=== PATIENT | male | born 1935 | race Caucasian/White ===

== ENCOUNTER 2019-01-16 16:05 | Inpatient (IN) ==
[2019-01-16] MEDS ORDERED: MAGNESIUM HYDROXIDE SUSP 30 ML UDC PO PRN (16:12)
[2019-01-16] MEDS ORDERED: ONDANSETRON INJ 2 MG/ML 2 ML VIAL IV PRN (16:12)
[2019-01-16] MEDS ORDERED: POLYETHYLENE (MIRALAX) 17 GM PACK PO PRN (16:12)
[2019-01-16] MEDS ORDERED: ALUMINUM/MAGNESIUM SUSP 30 ML UDC PO PRN (16:12)
[2019-01-16] MEDS ORDERED: NITROGLYCERIN SL 0.4 MG/TAB TAB SL PRN (16:12)
[2019-01-16] MEDS ORDERED: GLUCOSE 10 TABS/TUBE PO PRN (16:12)
[2019-01-16] MEDS ORDERED: GLUCAGON FOR INJ 1 MG VIAL SQ PRN (16:12)
[2019-01-16] MEDS ORDERED: DEXTROSE 50% 50 ML SYRINGE IV PRN (16:12)
[2019-01-16] MEDS ORDERED: CARBOHYDRATES FOR HYPOGLYCEMIA PO PRN (16:12)
[2019-01-16] MEDS ORDERED: GLUCOSE 40% GEL 15 GM TUBE PO PRN (16:12)
[2019-01-16] MEDS ORDERED: INSULIN ASPART 100 UNITS/ML 3 ML PEN SC SCH (16:30)
--- NOTE | 2019-01-16 17:23 | History & Physical Report ---
Date of Service January 16, 2019 Assessment & Plan (1) Acute decompensated heart failure: Mr. Beasley is a 83-year-old male who has significant past medical history of CAD history of CABG x 3 in 2002, T2DM, HTN, HLD, hypothyroidism, BPH, glaucoma, diabetic retinopathy, statin intolerance who presents to [facility] as a direct admission from cardiology clinic due to decompensated CHF. Pt directly admitted from cardiology clinic / to acute decompensated CHF obtain lab work CBC, CMP, TSH, Troponin, Mag, Pro BNP CXR reveals mild CHF, pulmonary vasc congestion and small b/l pleural effusions EKG pending Echocardiogram ordered to determine diastolic vs systolic and eval for wall motion abnormality b/l venous dopplers once lab work return will give Lasix 40mg IV x 1 being Lasix IV 40mg BID starting tomorrow Ma ordered (2) Edema: Bilateral lower extremity edema, right greater than left Likely in setting of acute decompensated CHF Obtain bilateral venous Doppler rule out DVT Also concern for possible developing right lower extremity cellulitis, elevated WBC 15 K but he is afebrile Obtain procalcitonin Monitor this closely (3) CAD (coronary artery disease): hx of CABG x 3 in 2002 on ASA, Zetia, Metoprolol and losartan plan as above (4) T2DM (type 2 diabetes mellitus): Last A1c 9.0 in June 2018 Obtain A1c Patient prefers remaining on NovoLog 70/30 due to prior reaction to other insulins in past Consult glycemic pharmacist for management, appreciate their input (5) HTN (hypertension): Blood pressure currently elevated On metoprolol, losartan, HCTZ and outpatient Hold HCTZ and will administer IV Lasix (6) HLD (hyperlipidemia): Continue Zetia Patient statin intolerant fasting lipid panel pending (7) Hypothyroidism: Continue levothyroxine Obtain TSH (8) BPH (benign prostatic hyperplasia): Continue Flomax and finasteride (9) Subconjunctival hemorrhage of left eye: Conservative management, monitor (10) DVT prophylaxis: Lovenox, SCD/TEDS Disposition: pt admitted to PCU Follow up: PCP Dr. Boyer upon discharge along with appropriate cardiology follow up Patient was seen and examined in collaboration with Dr. Lyman, please see addendum Starting 01/17/19 pt will be under the care of Dr. Vangala History of Present Illness Chief Complaint: Shortness of breath and increased lower extremity swelling x1.5 weeks. Primary Care Provider: Jamie Boyer MD Mr. Beasley is a 83-year-old male who has significant past medical history of CAD history of CABG x 3 in 2002, T2DM, HTN, HLD, hypothyroidism, BPH, glaucoma, diabetic retinopathy, statin intolerance who presents to [facility] as a direct admission from cardiology clinic due to decompensated CHF. is at bedside. Over the past 1.5 weeks he has noticed increase in lower extremity swelling, right greater than left, shortness of breath with exertion, 2-3 pillow orthopnea, minimal dry cough. He admits to chronic left lower extremity swelling ever since CABG, but now worse. He denies any fever, chills, sweats, lightheadedness, dizziness, syncope, chest pain, palpitations, hemoptysis, nausea, vomiting, abdominal pain, diarrhea, melena, hematochezia, dysuria, increased urgency with urination, hematuria. He does have frequent nocturia secondary to BPH. His appetite has otherwise been stable. He has an approximate 10 pound weight gain since his last cardiology visit per . Despite being 83 he has only been hospitalized twice once for his CABG at [facility] and the other for coronary stent at [facility] in 1992. Patient was seen and evaluated in cardiology clinic secondary to ALICIA and increased swelling. He was evaluated by Dr. Brandon and referred for direct admission. Allergies Allergy/AdvReac Type Severity Reaction Status Date / Time atorvastatin [From Lipitor] AdvReac Intermediate muscle pain Verified 01/16/19 16:24 rosuvastatin AdvReac Intermediate muscle pain Verified 01/16/19 16:24 simvastatin AdvReac Intermediate muscle pain Verified 01/16/19 16:24 lisinopril AdvReac Unknown Verified 01/16/19 16:24 Home Medications Home Medications Medication Instructions Recorded Confirmed Type amoxicillin 2,000 mg PO DAILY PRN 01/16/19 01/16/19 History aspirin [Aspir-81] 81 mg PO DAILY 01/16/19 01/16/19 History brimonidine 1 drp OPHTHALMIC (EYE) BID 01/16/19 01/16/19 History cyanocobalamin (vitamin B-12) 1,000 mcg SUBLINGUAL DAILY 01/16/19 01/16/19 History diclofenac sodium 4 g TOPICAL QID 01/16/19 01/16/19 History dorzolamide-timolol (PF) [Cosopt 1 drp OPHTHALMIC (EYE) BID 01/16/19 01/16/19 History (PF)] ezetimibe 10 mg PO DAILY 01/16/19 01/16/19 History finasteride 5 mg PO DAILY 01/16/19 01/16/19 History hydrochlorothiazide 25 mg PO 3XWK 01/16/19 01/16/19 History insulin asp prt-insulin aspart 20 unit SUBCUT BID 01/16/19 01/16/19 History [Novolog Mix 70-30FlexPen U-100] latanoprost 1 drp OPHTHALMIC (EYE) PM 01/16/19 01/16/19 History levothyroxine 75 mcg PO DAILY 01/16/19 01/16/19 History losartan 50 mg PO DAILY 01/16/19 01/16/19 History metformin 1,000 mg PO BIDM 01/16/19 01/16/19 History metoprolol tartrate 50 mg PO BID 01/16/19 01/16/19 History tamsulosin 0.4 mg PO DAILY 01/16/19 01/16/19 History vit C-E-zinc vdn-[id number] 1 tab PO BID 01/16/19 01/16/19 History [[facility]] Past Med/Surg History Medical History CAD (coronary artery disease) T2DM (type 2 diabetes mellitus) HTN (hypertension) HLD (hyperlipidemia) Hypothyroidism BPH (benign prostatic hyperplasia) Glaucoma Diabetic proliferative retinopathy Statin intolerance Surgical History History of coronary artery bypass graft x 3 PTCA R Coronary 1992 MORALES 2002 to LAD, SVG -1st diag, obtuse and posterior descending History of cataract extraction Family History Father , 71 Stroke Diabetes Mother , 79 Dementia Brother Coronary heart disease Diabetes CHF (congestive heart failure) Social History Preferred Language: Lao Communication Ability: Effective Beliefs That Will Affect Care: Sikhism Sikhism Beliefs: Confucianism Current Living Situation: Spouse Other Information That Helps Us Care for You: No Feels Safe at Home: Yes Smoking Status: Never smoker Hx Alcohol Use: Yes Alcohol type: beer Alcohol Intake Frequency: Rarely Hx Substance Use: No Review of Systems Review of Systems: All systems reviewed & are unremarkable except as noted in HPI & below Physical Exam Physical Exam: Constitutional: WD/WN, vitals as above, NAD, sitting up at bedside, pleasant, conversing easily Head: Normocephalic, Atraumatic Eyes: PERRL, conjunctivae normal except for left medial subconjunctival injection spares limbus, anicteric sclerae ENMT: external ear and nose normal, oropharynx normal Neck: trachea midline, no thyromegaly normal visual inspection Respiratory: normal respiratory effort, lungs clear to auscultation with decreased breath sounds bilateral bases, no wheeze, rales, rhonchi. Normal insp/exp effort, no accessory muscle use Cardiovascular: RRR, no murmur, bilateral lower extremity edema right greater than left, +2, right lower extremity warm, skin taunt, Vessels: no JVD or carotid bruit Chest: normal inspection of chest Abdomen: normal bowel sounds, soft, nontender, no hepatosplenomegaly Musculoskeletal: no cyanosis or clubbing, extremities motor strength 5/5 Skin: no rashes, warm and dry normal turgor Neurologic: PERRL, EOMI, accommodation nl, no face palsy, no dysarthria CN's II-XI intact bilaterally and moves all extremities Psychiatric: A+Ox3, euthymic affect Lymphatic: no cervical or axillary lymphadenopathy : deferred Results & Data Vital Signs (Past 12 Hours) Vital Signs Temp Pulse Resp Pulse Ox 01/16/19 16:55 36.6 C 100 H 18 98 Diagnostic Findings CXR: IMPRESSION: Cardiomegaly and radiographic evidence of mild congestive failure/fluid overload with small bilateral pleural effusions Code Status & VTE Plan Code Status Full Code VTE Prophylaxis Plan VTE Prophylaxis will be ordered: Yes Supervising Physician Co-Signing Physician Notes Attending Addendum: care coordinated with MINE Escoto please refer to her notes for full details, I agree with her notes patient seen and examined, records reviewed by myself as well on exam, patient seen resting in bed, comfortable breathing is improving denies chest pain minimal leg discomfort no other symptoms VS noted and reviewed oriented x3, not in distress, speaks in sentences with no effort nor accessory muscle use normal rate, regular rhythm, no murmurs clear breath sounds bilaterally non distended, soft, nontender (+) grade 1 lower leg edema, moderate erythema- right lower leg, with mild warmth mild weakness on the right leg WBC 15.7 Hg 14.1 Crea 1.00 ASSESSMENT AND PLAN DECOMPENSATED CHF echo ordered IV Lasix started titrate diuretics, monitor renal function POSSIBLE RIGHT LOWER LEG CELLULITIS Cephalexin started RIGHT LOWER LEG WEAKNESS CT head no acute CVA PT/OT eval other diagnoses and plan of care as per MINE Escoto'sunni notes Julio Lyman MD
[2019-01-16 17:25] LABS: Hematocrit (blood only) 41.4 % (42-52); Hemoglobin 14.1 g/dL (14.0-18.0); Mean Corpuscular Hgb Conc 34.1 g/dL (32-36); Mean Platelet Volume 10.2 fL (7.4-10.4); Platelet Count 223 K/uL (130-400); RDW Coefficient of Variation 13.8 % (11.5-14.5); RDW Standard Deviation 44.8 fL (36.4-46.3); Red Blood Count 4.55 M/uL (4.7-6.1); White Blood Count 15.77 K/uL (4.8-10.8)
--- NOTE | 2019-01-16 17:34 | XRay Report ---
XR chest 1V portable CLINICAL HISTORY: sob COMPARISON STUDY: No previous studies for comparison. FINDINGS: The heart is mildly enlarged. There are postsurgical changes of a midline sternotomy. There is elevation of interstitium consistent with mild pulmonary vascular congestion/fluid overload. Ther e are small bilateral pleural effusions. There is no lobar consolidation.[ IMPRESSION: Cardiomegaly and radiographic evidence of mild congestive failure/fluid overload with sma ll bilateral pleural effusions Electronically signed by: Jorge Luis Everett M.D. 01/16/2019 5:32 PM
[2019-01-16 17:46] LABS: INR 1.1 (0.9-1.1); Partial Thromboplastin Time 26.7 Seconds (21.0-31.0); Prothrombin Time 10.9 Seconds (9.0-12.0)
[2019-01-16 17:49] LABS: Albumin Level 3.7 gm/dl (3.4-5.0); BUN Creatinine Ratio 19.4 (10-20); Calcium 9.3 mg/dl (8.5-10.1); Creatinine Clr Calc Pharmacy 56.8 ml/min; Est GFR (African American) 79.7; Est GFR (Non-African American) 68.8; Magnesium 1.9 mg/dl (1.8-2.4); Potassium 4.2 mmol/L (3.5-5.1)
[2019-01-16 18:05] LABS: Bilirubin,Total 1.1 mg/dl (0.2-1)
[2019-01-16 18:06] LABS: Globulin 3.7 gm/dl (2.5-4.0); Thyroid Stimulating Hormone 1.82 uIu/ml (0.300-4.500); Total Protein 7.4 gm/dl (6.4-8.2); Troponin I 0.055 ng/ml (0-0.045)
[2019-01-16] MEDS ORDERED: PHARMACY GLYCEMIC MGMT CONSULT PRN (18:15)
[2019-01-16] MEDS ORDERED: FUROSEMIDE 40 MG/4 ML VIAL IV STA (18:15)
[2019-01-16] MEDS ORDERED: FUROSEMIDE 40 MG in SYRINGE 0 ML IV ONE (18:45)
[2019-01-16] MEDS ORDERED: INSULIN HUMAN NPH SC SCH (19:00)
--- NOTE | 2019-01-16 19:41 | Ultrasound Report ---
US venous doppler LE CLINICAL HISTORY: 83 years-old Male presenting with Edema. TECHNIQUE: Real-time grayscale and color and spectral Doppler ultrasound imaging of the veins of the bilateral lower extremities was performed. Compression and augmentation were also utilized. COMPARISON: None. FINDINGS: RIGHT: Common femoral vein: Patent. Greater saphenous vein (superficial): Patent. Deep femoral vein: Patent. Femoral vein: Patent. Popliteal vein: Patent. Calf veins: Patent. LEFT: Common femoral vein: Patent. Greater saphenous vein (superficial): Patent. Deep femoral vein: Patent. Femoral vein: Patent. Popliteal vein: Patent. Calf veins: Patent. Other: Subcutaneous edema in the left popliteal fossa. IMPRESSION: 1. No evidence of deep venous thrombosis. 2. Subcutaneous edema in the left popliteal fossa. Electronically signed by: Jamie Dillon M.D. 01/16/2019 7:40 PM
[2019-01-16] MEDS: INSULIN ASPART 100 UNITS/ML 3 ML PEN SC SCH (20:36)
[2019-01-16] MEDS: cephALEXin 250 MG CAP PO SCH (20:58)
[2019-01-16] MEDS: METOPROLOL TARTRATE 50 MG TAB PO SCH (20:59)
[2019-01-16] MEDS: LATANOPROST 0.005% OP SOLN 2.5 ML BTL OP SCH (21:00)
[2019-01-16] MEDS ORDERED: FUROSEMIDE 40 MG in SYRINGE 0 ML IV SCH (21:00)
[2019-01-16] MEDS ORDERED: INSULIN GLARGINE SOLOSTAR 100 UNITS/ML 3 ML PEN SC SCH (21:00)
[2019-01-16] MEDS: BRIMONIDINE TARTRATE 0.2% 5ML OP SCH (21:01)
[2019-01-16] MEDS: DORZOLAMIDE/TIMOLOL 22.3/6.8MG/ML 10 ML BTL OP SCH (21:01)
--- NOTE | 2019-01-16 21:49 | CT Scan Report ---
CT head/brain wo con CLINICAL HISTORY: 83 years-old Male presenting with right leg weakness. TECHNIQUE: Multidetector CT imaging of the head was performed without the use of intravenous contrast . IV contrast: None. One or more dose lowering techniques were used consistent with the principles of ALARA (as low as reasonably achievable), including automatic exposure control, mA or kV adjustment t o individual patient size, and/or use of iterative reconstruction. COMPARISON: None. CT DOSE (mGy.cm): The estimated cumulative dose is 537.48 mGy.cm. FINDINGS: Special Certificate Dictator topogram: Unremarkable. Proportional ventricular and sulcal prominence, likely age-related parenchymal volume loss. No hemorr graciela. Brain parenchyma normal in appearance with preserved lilly-white differentiation. No acute gilberto torial infarct. No mass effect or midline shift. No extra-axial fluid collection. Paranasal sinuses a nd mastoid air cells clear. Calvarium intact. IMPRESSION: 1. No acute intracranial abnormality. Electronically signed by: Jamie Dillon M.D. 01/16/2019 9:48 PM
[2019-01-17] MEDS: LEVOTHYROXINE SODIUM 75 MCG TABLET PO SCH (05:41)
[2019-01-17 05:50] LABS: Hematocrit (blood only) 37.1 % (42-52); Hemoglobin 12.5 g/dL (14.0-18.0); Mean Corpuscular Hemoglobin 30.6 pg (25-34); Mean Corpuscular Hgb Conc 33.7 g/dL (32-36); Mean Corpuscular Volume 90.7 fL (80-100); Mean Platelet Volume 10.3 fL (7.4-10.4); Platelet Count 196 K/uL (130-400); RDW Coefficient of Variation 13.7 % (11.5-14.5); RDW Standard Deviation 45.2 fL (36.4-46.3); Red Blood Count 4.09 M/uL (4.7-6.1); White Blood Count 15.27 K/uL (4.8-10.8)
[2019-01-17 06:19] LABS: Chol HDL Ratio 4; Cholesterol 147 mg/dl (0-200); HDL Cholesterol 42 mg/dl; LDL Cholesterol Calculated 92 mg/dl; Triglycerides 63 mg/dl (0-150); VLDL Cholesterol 13 mg/dl
[2019-01-17 06:29] LABS: Albumin Globulin Ratio 0.9 (0.9-2); Bilirubin,Total 1.3 mg/dl (0.2-1); Calcium 8.7 mg/dl (8.5-10.1); Creatinine Clr Calc Pharmacy 57.9 ml/min; Est GFR (African American) 81.7; Est GFR (Non-African American) 70.5; Globulin 3.4 gm/dl (2.5-4.0); Magnesium 1.7 mg/dl (1.8-2.4); Potassium 3.5 mmol/L (3.5-5.1); Total Protein 6.4 gm/dl (6.4-8.2); Troponin I 0.038 ng/ml (0-0.045)
[2019-01-17] MEDS ORDERED: PNEUMOCOCCAL ADMINISTRATION CHARGE ONE (06:45)
[2019-01-17] MEDS ORDERED: PNEUMOCOCCAL POLYSACCHARIDES 25 MCG/0.5 ML VIAL/SYR IM ONE (06:45)
[2019-01-17 06:55] LABS: Estimated Average Glucose 194 mg/dl; Hemoglobin A1C 8.4 % (4.5-5.6)
[2019-01-17] MEDS ORDERED: INSULIN HUMAN NPH SC SCH (08:00)
[2019-01-17] MEDS: ASPIRIN 81 MG ECTAB PO SCH (08:26)
[2019-01-17] MEDS: METOPROLOL TARTRATE 50 MG TAB PO SCH (08:26)
[2019-01-17] MEDS: FUROSEMIDE 40 MG in SYRINGE 0 ML IV SCH ×2 (08:26→16:59)
[2019-01-17] MEDS: cephALEXin 250 MG CAP PO SCH ×4 (08:26→20:44)
[2019-01-17] MEDS: EZETIMIBE 10 MG TABLET PO SCH (08:26)
[2019-01-17] MEDS: BRIMONIDINE TARTRATE 0.2% 5ML OP SCH ×2 (08:27→20:43)
[2019-01-17] MEDS: ENOXAPARIN INJ 40 MG/0.4 ML SYR SQ SCH (08:27)
[2019-01-17] MEDS: FINASTERIDE 5 MG TAB PO SCH (08:29)
[2019-01-17] MEDS: SACCHAROMYCES BOULARDII 250 MG CAP PO SCH (08:29)
[2019-01-17] MEDS: CEROVITE ADV FORMULA TAB PO SCH (08:29)
[2019-01-17] MEDS: DORZOLAMIDE/TIMOLOL 22.3/6.8MG/ML 10 ML BTL OP SCH ×2 (08:29→20:42)
[2019-01-17] MEDS: CYANOCOBALAMIN 500 MCG TABLET (VITAMIN B-12) PO SCH (08:29)
[2019-01-17] MEDS: TAMSULOSIN HCL 0.4 MG CAP PO SCH (08:29)
[2019-01-17] MEDS: LOSARTAN POTASSIUM 50 MG TAB PO SCH (08:29)
[2019-01-17] MEDS: INSULIN ASPART 100 UNITS/ML 3 ML PEN SC SCH ×4 (08:30→20:47)
[2019-01-17] MEDS ORDERED: MAGNESIUM SULFATE / D5W 1 GM/100 ML BAG IV ONE (08:45)
[2019-01-17] MEDS: POTASSIUM CHLORIDE 10 MEQ TABCR PO SCH ×2 (09:34→20:45)
--- NOTE | 2019-01-17 10:42 | Pharmacy Report ---
Glycemic Control Progress Note - Date of Service January 17, 2019 - Scope Glycemic Pharmacist consulted for glycemic control to write orders per [facility] inpatient glycemic control protocol. - Objective Accuchecks BSG(last 24 hours):: 01/16/19 01/16/19 01/17/19 17:06 20:31 05:29 Glucose 165 H 127 H POC Glucose 220 H 01/17/19 07:24 Glucose POC Glucose 133 H HbA1c:: Hemoglobin A1c 8.4 % (4.5-5.6) H 01/17/19 05:29 - Recent Pertinent Medications The patient is currently receiving: * Basal insulin: NPH units every 13 x 1 * Correctional Insulin: Novolog Correction per scale ACHS Goal Range: Low 120 mg/dL - High 150 mg/dL Correction Factor: 30 mg/dL/unit * Prandial insulin: Per carb ratio of 1 unit per 10 grams CHO consumed - Outpatient Anti-Diabetic Meds Novolog Mix 20 units BID metformin 1 gm PO BID - Assessment & Plan ASSESSMENT: * Pt receiving SQ basal bolus insulin regimen for hyperglycemia secondary to baseline DM (outpatient regimen on hold),stress/infection (on Keflex). * Patient is currently receiving an average of 26 units of insulin per day * 9 units of basal insulin * 27 units of prandial/correctional insulin * BSGs ranging 165 - 220 mg/dl over the past 24hrs (ONLY 2 BSGS YESTERDAY) * Changes needed to insulin regimen: * AM Fasting BSG = 133 mg/dl. This is in goal range for patient based on inpatient targets and co-morbidities. The patient received 13 units of NPH last night. Reduce dose slightly for hospitalization so will use 10 units BIDM. * Post-prandial BSGs are in range therefore no changes needed to CF/CR- utilize weight-based stress of 2 * Total daily dose = ~40 units. * Additional notes / comments: continue to hold metformin PLAN FOR INPATIENT GLYCEMIC CONTROL: * DECREASING NPH to 10 units SQ BIDM * Continuing correction factor of 25 mg/dl/unit * Continuing carb ratio of 1 unit per 9 grams CHO consumed * Continuing goal range of Low 110 mg/dL - High 140 mg/dL * Please note that the plan above was derived based on current level of insulin resistance and hospital stress. These recommendations are appropriate for inpatient admission only. Plan of care upon discharge will need to be reassessed to avoid potential outpatient hypo/hyperglycemia. Thank you.
--- NOTE | 2019-01-17 11:59 | Cardiology Progress Note ---
Date of Service January 17, 2019 Assessment & Plan (1) Acute decompensated heart failure: Patient seen with subacute onset of worsening dyspnea lower extremity edema, abdominal bloating in the outpatient setting examination consistent with decompensated congestive heart failure Patient clinically improved this morning following IV diuretics Echocardiogram pending We will change metoprolol to metoprolol succinate Continue IV diuretics Consider addition of spironolactone to her regimen in a.m. Etiology uncertain question ischemic versus nonischemic deterioration. Review echocardiogram. Elevated white cell count low albumin levels observed. Serum protein electrophoresis urinary electrophoresis and CBC with differential ordered (2) CAD (coronary artery disease): (3) HTN (hypertension): (4) T2DM (type 2 diabetes mellitus): (5) HLD (hyperlipidemia): (6) Statin intolerance: (7) History of coronary artery bypass graft x 3: Subjective Patient seen and examined, chart, medications, telemetry reviewed. Improved this morning after diuresis less dyspneic less edema No chest pains or discomfort no tachypalpitations Complains of right leg and foot pain and weakness as well as right shoulder pain and arm weakness. Notes possible traumatic injury to the right arm in the past months time Physical Exam Constitutional: WD/WN, vitals as above Eyes: PERRL, conjunctivae normal, anicteric sclerae ENMT: external ear and nose normal, oropharynx normal Neck: trachea midline, no thyromegaly Respiratory: normal respiratory effort, lungs clear to auscultation Cardiovascular: Rate/Rhythm: regular rate and regular rhythm Heart Sounds: normal S1 and normal S2; no gallop and no murmur Palpation: normal PMI Vessels: normal carotid upstroke and radial pulses present; no JVD and no carotid bruit Extremities: no edema Gastrointestinal (Abdomen): normal bowel sounds, soft, nontender, no hepatosplenomegaly Musculoskeletal: no cyanosis or clubbing, extremities motor strength 5/5 Skin: no rashes, warm and dry Neurologic: PERRL, EOMI, accommodation nl, no face palsy, no dysarthria Psychiatric: A+Ox3, euthymic affect Results & Data Vital Signs (Past 12 Hours) Vital Signs Temp Pulse Pulse Pulse Resp BP BP 01/17/19 11:02 36.5 C 72 18 136/75 01/17/19 06:59 36.8 C 91 H 18 142/74 H 01/17/19 03:58 37.6 C H 88 20 120/70 01/17/19 00:00 37 C 79 81 25 H 96/56 L Pulse Ox 01/17/19 11:02 97 01/17/19 06:59 91 01/17/19 03:58 92 01/17/19 00:00 92 Laboratory Results Laboratory Results - last 24 hr 01/16/19 01/16/19 01/16/19 17:06 17:06 17:06 WBC 15.77 H RBC 4.55 L Hgb 14.1 Hct 41.4 L MCV 91.0 MCH 31.0 MCHC 34.1 RDW Std Deviation 44.8 RDW Coeff of Radhames 13.8 Plt Count 223 MPV 10.2 PT 10.9 INR 1.1 APTT 26.7 PTT Ratio 1.0 Sodium 138 Potassium 4.2 Chloride 105 Carbon Dioxide 27 Anion Gap 6.0 BUN 19 H Creatinine 1.00 Est Cr Clr Drug Dosing 56.8 Est GFR ( Amer) 79.7 Est GFR (Non-Af Amer) 68.8 BUN/Creatinine Ratio 19.4 Glucose 165 H POC Glucose Estimat Average Glucose Hemoglobin A1c Calcium 9.3 Magnesium 1.9 Total Bilirubin 1.1 H AST 12 L ALT 24 Alkaline Phosphatase 91 Troponin I 0.055 H* NT-Pro-B Natriuret Pep 4644 H Total Protein 7.4 Albumin 3.7 Globulin 3.7 Albumin/Globulin Ratio 1.0 Triglycerides Cholesterol LDL Cholesterol, Calc VLDL Cholesterol, Calc HDL Cholesterol Cholesterol/HDL Ratio Procalcitonin TSH 1.820 01/16/19 01/16/19 01/16/19 17:06 20:31 22:57 WBC RBC Hgb Hct MCV MCH MCHC RDW Std Deviation RDW Coeff of Radhames Plt Count MPV PT INR APTT PTT Ratio Sodium Potassium Chloride Carbon Dioxide Anion Gap BUN Creatinine Est Cr Clr Drug Dosing Est GFR ( Amer) Est GFR (Non-Af Amer) BUN/Creatinine Ratio Glucose POC Glucose 220 H Estimat Average Glucose Hemoglobin A1c Calcium Magnesium Total Bilirubin AST ALT Alkaline Phosphatase Troponin I 0.058 H* NT-Pro-B Natriuret Pep Total Protein Albumin Globulin Albumin/Globulin Ratio Triglycerides Cholesterol LDL Cholesterol, Calc VLDL Cholesterol, Calc HDL Cholesterol Cholesterol/HDL Ratio Procalcitonin < 0.05 TSH 01/17/19 01/17/19 01/17/19 05:29 05:29 05:29 WBC RBC Hgb Hct MCV MCH MCHC RDW Std Deviation RDW Coeff of Radhames Plt Count MPV PT INR APTT PTT Ratio Sodium 138 Potassium 3.5 D Chloride 105 Carbon Dioxide 26 Anion Gap 7.0 BUN 20 H Creatinine 0.98 Est Cr Clr Drug Dosing 57.9 Est GFR ( Amer) 81.7 Est GFR (Non-Af Amer) 70.5 BUN/Creatinine Ratio 20.0 Glucose 127 H POC Glucose Estimat Average Glucose 194 Hemoglobin A1c 8.4 H Calcium 8.7 Magnesium 1.7 L Total Bilirubin 1.3 H AST 8 L ALT 21 Alkaline Phosphatase 73 Troponin I 0.038 NT-Pro-B Natriuret Pep Total Protein 6.4 Albumin 3.0 L Globulin 3.4 Albumin/Globulin Ratio 0.9 Triglycerides 63 Cholesterol 147 LDL Cholesterol, Calc 92 VLDL Cholesterol, Calc 13 HDL Cholesterol 42 Cholesterol/HDL Ratio 4 Procalcitonin TSH 01/17/19 01/17/19 01/17/19 05:29 07:24 11:05 WBC 15.27 H RBC 4.09 L Hgb 12.5 L Hct 37.1 L MCV 90.7 MCH 30.6 MCHC 33.7 RDW Std Deviation 45.2 RDW Coeff of Radhames 13.7 Plt Count 196 MPV 10.3 PT INR APTT PTT Ratio Sodium Potassium Chloride Carbon Dioxide Anion Gap BUN Creatinine Est Cr Clr Drug Dosing Est GFR ( Amer) Est GFR (Non-Af Amer) BUN/Creatinine Ratio Glucose POC Glucose 133 H 286 H Estimat Average Glucose Hemoglobin A1c Calcium Magnesium Total Bilirubin AST ALT Alkaline Phosphatase Troponin I NT-Pro-B Natriuret Pep Total Protein Albumin Globulin Albumin/Globulin Ratio Triglycerides Cholesterol LDL Cholesterol, Calc VLDL Cholesterol, Calc HDL Cholesterol Cholesterol/HDL Ratio Procalcitonin TSH
--- NOTE | 2019-01-17 13:55 | XRay Report ---
XR foot RT min 3V routine CLINICAL HISTORY: Right foot pain status post trauma COMPARISON: None. DISCUSSION: No acute fractures or dislocations are visualized. There are mild osteoarthritic changes. There is a small periarticular calcification at the level of the proximal to phalangeal joint of the fifth toe. There is Achilles insertional spur and plantar calcaneal spur. There are vascular calcifi cations present. IMPRESSION: No acute fractures or dislocations identified. Electronically signed by: Jorge Luis Everett M.D. 01/17/2019 1:54 PM
[2019-01-17] MEDS: ACETAMINOPHEN 325 MG TAB PO PRN ×2 (14:17→18:46)
--- NOTE | 2019-01-17 14:31 | Hospitalist Progress Note ---
Date of Service January 17, 2019 Assessment & Plan (1) Acute decompensated heart failure: Patient is an 83 yr male with H/O CAD S/P CABG x 3 in 2002, T2DM, HTN, HLD, hypothyroidism, BPH, glaucoma, diabetic retinopathy, statin intolerance who presents from cardiology clinic due to decompensated CHF. Acute systolic and diastolic CHF exacerbation CXR reveals mild CHF, pulmonary vasc congestion and small b/l pleural effusions ECHO: Moderate LVH, EF:45-50%, grade 2 diastolic dysfunction Continue daily weight, I/Os, fluid restriction Continue IV Lasix Low sodium diet Metoprolol changed to succinate Monitor renal function/electrolytes Appreciate Cardiology Input (2) Edema: Possible right lower extremity cellulitis Venous Doppler: No evidence of deep venous thrombosis. Subcutaneous edema in the left popliteal fossa. R Foot X ray: No acute fractures or dislocations identified. Procalcitonin normal Protein Electrophoresis pending Continue Keflex H/O Multiple falls H/O peripheral Neuropathy as per records Ambulatory dysfunction CT head:No acute intracranial abnormality. PT/OT (3) CAD (coronary artery disease): H/O CABG x 3 in 2002 Continue ASA, Zetia, Metoprolol and losartan (4) T2DM (type 2 diabetes mellitus): Hb A1C:8.4 Patient prefers remaining on NovoLog 70/30 due to prior reaction to other insulins in past Consult glycemic pharmacist for management, appreciate their input (5) HTN (hypertension): Blood pressure stable Continue metoprolol, losartan Also on tamsulosin HCTZ on hold while on IV Lasix (6) HLD (hyperlipidemia): Continue Zetia H/O statin intolerant (7) Hypothyroidism: Continue levothyroxine TSH normal (8) BPH (benign prostatic hyperplasia): Continue Flomax, finasteride (9) Subconjunctival hemorrhage of left eye: Conservative management (10) DVT prophylaxis: Lovenox SQ Code Status Full Code Disposition: To be determined Subjective Patient is seen and examined at bedside Complains of right foot pain Admits to have multiple falls since last few days Less short of breath today Right leg erythema/burning sensation improved Denies any chest pain, nausea, abdominal pain, dizziness Family at bedside Review of Systems Review of Systems: All systems reviewed & are unremarkable except as noted in HPI & below Physical Exam Physical Exam: Physical Exam: Vitals signs as noted above General Appearance:Moderately built and nourished, no apparent distress Head: normocephalic, Atraumatic Eyes: normal inspection, EOMI Neck: supple, Trachea midline Respiratory/Chest: Normal breath sounds, CTA Cardiovascular: S1, S2, No murmur Abdomen/GI:Soft, Non tender, Bowel sounds present Extremities/Musculoskelatal:normal inspection, B/L LE edema, R leg erythema improved Neurologic/Psych:AAOX3, Right LE weakness 4/5 Skin: normal color, warm Results & Data Vital Signs (Past 12 Hours) Vital Signs Temp Pulse Pulse Resp BP BP Pulse Ox 01/17/19 11:02 36.5 C 72 18 136/75 97 01/17/19 06:59 36.8 C 91 H 18 142/74 H 91 01/17/19 03:58 37.6 C H 88 20 120/70 92 Laboratory Results Short CBC 01/16/19 01/17/19 Range/Units 17:06 05:29 WBC 15.77 H 15.27 H (4.8-10.8) K/uL Hgb 14.1 12.5 L (14.0-18.0) g/dL Hct 41.4 L 37.1 L (42-52) % Plt Count 223 196 (130-400) K/uL BMP 01/16/19 01/17/19 17:06 05:29 Sodium 138 138 Potassium 4.2 3.5 D Chloride 105 105 Carbon Dioxide 27 26 BUN 19 H 20 H Creatinine 1.00 0.98 Glucose 165 H 127 H Calcium 9.3 8.7 Cardiac Enzymes 01/16/19 01/16/19 01/17/19 Range/Units 17:06 22:57 05:29 Troponin I 0.055 H* 0.058 H* 0.038 (0-0.045) ng/ml Liver Function 01/16/19 01/17/19 Range/Units 17:06 05:29 Total Bilirubin 1.1 H 1.3 H (0.2-1) mg/dl AST 12 L 8 L (15-37) U/L ALT 24 21 (12-78) U/L Alkaline Phosphatase 91 73 (45-117) U/L Albumin 3.7 3.0 L (3.4-5.0) gm/dl
[2019-01-17] MEDS: INSULIN HUMAN NPH SC SCH (17:00)
[2019-01-17] MEDS ORDERED: TRAMADOL HCL 50 MG TABLET PO PRN (18:52)
[2019-01-17] MEDS: LATANOPROST 0.005% OP SOLN 2.5 ML BTL OP SCH (20:42)
[2019-01-17] MEDS: METOPROLOL SUCC 50MG EXT REL TAB PO SCH (20:45)
[2019-01-18 05:46] LABS: Hematocrit (blood only) 34.8 % (42-52); Hemoglobin 11.9 g/dL (14.0-18.0); Mean Corpuscular Hemoglobin 31.2 pg (25-34); Mean Corpuscular Hgb Conc 34.2 g/dL (32-36); Mean Corpuscular Volume 91.3 fL (80-100); Mean Platelet Volume 10.3 fL (7.4-10.4); Platelet Count 157 K/uL (130-400); RDW Coefficient of Variation 13.7 % (11.5-14.5); RDW Standard Deviation 45.9 fL (36.4-46.3); Red Blood Count 3.81 M/uL (4.7-6.1); White Blood Count 11.75 K/uL (4.8-10.8)
[2019-01-18 06:16] LABS: Basophils # (auto) 0.01 K/uL (0-0.2); Basophils % (auto) 0.1 %; Eosinophils # (auto) 0.04 K/uL (0-0.5); Eosinophils % (auto) 0.3 %; Immature Granulocytes # (auto) 0.04 K/uL (0.00-0.02); Immature Granulocytes % (auto) 0.3 %; Lymphocytes # (auto) 1.03 K/uL (1.2-3.4); Lymphocytes % (auto) 8.8 %; Monocytes # (auto) 1.44 K/uL (0.11-0.59); Monocytes % (auto) 12.3 %; Neutrophils # (auto) 9.19 K/uL (1.4-6.5); Neutrophils % (auto) 78.2 %; Toxic Vacuolation Occasional
[2019-01-18 06:17] LABS: BUN Creatinine Ratio 23.3 (10-20); Calcium 8.6 mg/dl (8.5-10.1); Creatinine Clr Calc Pharmacy 60.4 ml/min; Est GFR (African American) 85.9; Est GFR (Non-African American) 74.2; Potassium 3.6 mmol/L (3.5-5.1)
--- NOTE | 2019-01-18 07:58 | Pharmacy Report ---
Glycemic Control Progress Note - Date of Service January 18, 2019 - Scope Glycemic Pharmacist consulted for glycemic control to write orders per [facility] inpatient glycemic control protocol. - Objective Accuchecks BSG(last 24 hours):: 01/17/19 01/17/19 01/17/19 11:05 16:19 20:13 Glucose POC Glucose 286 H 125 H 165 H 01/18/19 01/18/19 05:24 07:22 Glucose 154 H POC Glucose 169 H HbA1c:: Hemoglobin A1c 8.4 % (4.5-5.6) H 01/17/19 05:29 - Recent Pertinent Medications The patient is currently receiving: * Basal insulin: NPH 10 units SQ BIDM * Correctional Insulin: Novolog Correction per scale ACHS Goal Range: Low 110 mg/dL - High 140 mg/dL Correction Factor: 25 mg/dL/unit * Prandial insulin: Per carb ratio of 1 unit per 7 grams CHO consumed - Outpatient Anti-Diabetic Meds METFORMIN 1 GM PO BIDM NOVOLOG MIX 20 UNITS BID - Assessment & Plan ASSESSMENT: * See progress note from 01/17/19 for more background info, in short: * Pt receiving SQ basal bolus insulin regimen for hyperglycemia secondary to baseline DM (outpatient regimen on hold),stress/infection (currently on Keflex). * Patient is currently receiving an average of 42 units of insulin per day * 20 units of basal insulin * 22 units of prandial/correctional insulin * BSGs ranging 125 - 286 mg/dl over the past 24hrs * Changes needed to insulin regimen: * AM Fasting BSG = 169 mg/dl. This is above goal range for patient based on inpatient targets and co-morbidities. Therefore Basal insulin will be increased by 20% to 12 units BIDM. * Post-prandial BSGs were reasonable. CF was able to decrease blood sugars appropriately. With increase in basal hopefully will bring blood sugars down overall. * Total daily dose = ~45 units. PLAN FOR INPATIENT GLYCEMIC CONTROL: * Increasing NPH to 12 units SQ BIDM * Continuing correction factor of 25 mg/dl/unit * Continuing carb ratio of 1 unit per 7 grams CHO consumed * Continuing goal range of Low 110 mg/dL - High 140 mg/dL RECOMMENDATIONS FOR DISCHARGE: * HbA1C is much improved from June of this year. Recommend continuing to work with PCP to reach goal of ~8% per age and comorbidities. Thank you.
[2019-01-18] MEDS: INSULIN HUMAN NPH SC SCH ×2 (08:06→17:09)
[2019-01-18] MEDS: INSULIN ASPART 100 UNITS/ML 3 ML PEN SC SCH ×4 (08:07→21:30)
[2019-01-18] MEDS: FUROSEMIDE 40 MG in SYRINGE 0 ML IV SCH ×2 (08:11→17:09)
[2019-01-18] MEDS: LOSARTAN POTASSIUM 50 MG TAB PO SCH (08:11)
[2019-01-18] MEDS: CEROVITE ADV FORMULA TAB PO SCH (08:11)
[2019-01-18] MEDS: cephALEXin 250 MG CAP PO SCH ×4 (08:12→21:30)
[2019-01-18] MEDS: CYANOCOBALAMIN 500 MCG TABLET (VITAMIN B-12) PO SCH (08:12)
[2019-01-18] MEDS: METOPROLOL SUCC 50MG EXT REL TAB PO SCH (08:13)
[2019-01-18] MEDS: FINASTERIDE 5 MG TAB PO SCH (08:13)
[2019-01-18] MEDS: ENOXAPARIN INJ 40 MG/0.4 ML SYR SQ SCH (08:13)
[2019-01-18] MEDS: SACCHAROMYCES BOULARDII 250 MG CAP PO SCH (08:13)
[2019-01-18] MEDS: POTASSIUM CHLORIDE 10 MEQ TABCR PO SCH ×2 (08:13→21:31)
[2019-01-18] MEDS: EZETIMIBE 10 MG TABLET PO SCH (08:14)
[2019-01-18] MEDS: ASPIRIN 81 MG ECTAB PO SCH (08:14)
[2019-01-18] MEDS: TAMSULOSIN HCL 0.4 MG CAP PO SCH (08:15)
[2019-01-18] MEDS: DORZOLAMIDE/TIMOLOL 22.3/6.8MG/ML 10 ML BTL OP SCH ×2 (08:15→21:32)
[2019-01-18] MEDS: BRIMONIDINE TARTRATE 0.2% 5ML OP SCH ×2 (08:16→21:32)
[2019-01-18] MEDS: LEVOTHYROXINE SODIUM 75 MCG TABLET PO SCH (09:14)
--- NOTE | 2019-01-18 10:47 | Cardiology Progress Note ---
Date of Service January 18, 2019 Assessment & Plan (1) Acute decompensated heart failure: Patient seen with subacute onset of worsening dyspnea lower extremity edema, abdominal bloating in the outpatient setting examination consistent with decompensated congestive heart failure Patient clinically improved again morning following IV diuretics Etiology uncertain question ischemic versus nonischemic deterioration. Review echocardiogram. Elevated white cell count low albumin levels observed. Serum protein electrophoresis urinary electrophoresis and CBC with differential ordered Echocardiogram with only mild LV dysfunction and no significant valvular disease Tolerating changes in medications. Will titrate Toprol higher, hold IV furosemide after dose this evening Add spironolactone to regimen (2) CAD (coronary artery disease): (3) HTN (hypertension): (4) T2DM (type 2 diabetes mellitus): (5) HLD (hyperlipidemia): (6) Statin intolerance: (7) History of coronary artery bypass graft x 3: Subjective Patient seen and examined, chart, medications, telemetry reviewed. Patient overall appears improved with less abdominal distention and lower extremity edema less dyspnea. Continues to have problems with right shoulder pain and right leg weakness No fevers chills. No tachypalpitations dizziness or lightheadedness. Telemetry without arrhythmias Patient continues to manifest diuresis with weight down 3.3 kg Physical Exam Constitutional: WD/WN, vitals as above Eyes: PERRL, conjunctivae normal, anicteric sclerae ENMT: external ear and nose normal, oropharynx normal Neck: trachea midline, no thyromegaly Respiratory: normal respiratory effort, lungs clear to auscultation Cardiovascular: Rate/Rhythm: regular rate and regular rhythm Heart Sounds: normal S1, normal S2 and + murmur (Grade 1/6); no gallop Palpation: normal PMI Vessels: normal carotid upstroke and radial pulses present; no JVD and no carotid bruit Extremities: no edema Gastrointestinal (Abdomen): normal bowel sounds, soft, nontender, no hepatosplenomegaly Musculoskeletal: no cyanosis or clubbing, extremities motor strength 5/5 Skin: no rashes, warm and dry Neurologic: PERRL, EOMI, accommodation nl, no face palsy, no dysarthria Psychiatric: A+Ox3, euthymic affect Results & Data Vital Signs (Past 12 Hours) Vital Signs Temp Pulse Pulse Resp BP BP Pulse Ox 01/18/19 08:00 89 01/18/19 06:58 36.6 C 84 22 139/79 93 11/10/19 03:37 37.1 C 80 22 143/78 H 93 01/18/19 00:00 81 01/17/19 23:17 36.7 C 77 22 110/61 96 Laboratory Results Laboratory Results - last 24 hr 01/17/19 01/17/19 01/17/19 11:05 16:19 20:13 WBC RBC Hgb Hct MCV MCH MCHC RDW Std Deviation RDW Coeff of Radhames Plt Count MPV Immature Gran % (Auto) Neut % (Auto) Lymph % (Auto) [facility] % (Auto) Eos % (Auto) Baso % (Auto) Immature Gran # (Auto) Neut # (Auto) Lymph # (Auto) [facility] # (Auto) Eos # (Auto) Baso # (Auto) Toxic Vacuolation Sodium Potassium Chloride Carbon Dioxide Anion Gap BUN Creatinine Est Cr Clr Drug Dosing Est GFR ( Amer) Est GFR (Non-Af Amer) BUN/Creatinine Ratio Glucose POC Glucose 286 H 125 H 165 H Calcium Magnesium Total Protein (PEP) Albumin (PEP) Eyfzt-3-Pzqvehjwr Mquji-6-Stwuovbuv Etef-9-Jtzremhl Yuob-5-Ndjymhiu Gamma Globulins Monoclonal Peak 3 Ser Monoclonl Protein Ser Monoclonal Prot 2 PEP Interpretation U Random Total Protein Ur Creatinine mg/dL Protein/Creatinin Ratio Urine Albumin (%) U Qktrv-5-Prkfqkvf (%) U Fcaly-8-Ldludbpr (%) U Beta Globulin (%) U Gamma Globulin (%) Urine PEP Interpret 01/18/19 01/18/19 01/18/19 02:30 05:24 05:24 WBC 11.75 H RBC 3.81 L Hgb 11.9 L Hct 34.8 L MCV 91.3 MCH 31.2 MCHC 34.2 RDW Std Deviation 45.9 RDW Coeff of Radhames 13.7 Plt Count 157 MPV 10.3 Immature Gran % (Auto) 0.3 Neut % (Auto) 78.2 Lymph % (Auto) 8.8 [facility] % (Auto) 12.3 Eos % (Auto) 0.3 Baso % (Auto) 0.1 Immature Gran # (Auto) 0.04 H Neut # (Auto) 9.19 H Lymph # (Auto) 1.03 L [facility] # (Auto) 1.44 H Eos # (Auto) 0.04 Baso # (Auto) 0.01 Toxic Vacuolation Occasional Sodium 136 Potassium 3.6 Chloride 104 Carbon Dioxide 26 Anion Gap 6.0 BUN 22 H Creatinine 0.94 Est Cr Clr Drug Dosing 60.4 Est GFR ( Amer) 85.9 Est GFR (Non-Af Amer) 74.2 BUN/Creatinine Ratio 23.3 H Glucose 154 H POC Glucose Calcium 8.6 Magnesium 2.0 Total Protein (PEP) Albumin (PEP) Dtijy-4-Apeebbtrd Crroa-5-Euftupqwf Qial-3-Cmeaubxt Koyn-1-Rusiskvo Gamma Globulins Monoclonal Peak 3 Ser Monoclonl Protein Ser Monoclonal Prot 2 PEP Interpretation U Random Total Protein Pending Ur Creatinine mg/dL Pending Protein/Creatinin Ratio Pending Urine Albumin (%) Pending U Qnsth-6-Xceecpvu (%) Pending U Nbhbo-3-Cgdsyltd (%) Pending U Beta Globulin (%) Pending U Gamma Globulin (%) Pending Urine PEP Interpret Pending 01/18/19 01/18/19 05:24 07:22 WBC RBC Hgb Hct MCV MCH MCHC RDW Std Deviation RDW Coeff of Radhames Plt Count MPV Immature Gran % (Auto) Neut % (Auto) Lymph % (Auto) [facility] % (Auto) Eos % (Auto) Baso % (Auto) Immature Gran # (Auto) Neut # (Auto) Lymph # (Auto) [facility] # (Auto) Eos # (Auto) Baso # (Auto) Toxic Vacuolation Sodium Potassium Chloride Carbon Dioxide Anion Gap BUN Creatinine Est Cr Clr Drug Dosing Est GFR ( Amer) Est GFR (Non-Af Amer) BUN/Creatinine Ratio Glucose POC Glucose 169 H Calcium Magnesium Total Protein (PEP) Pending Albumin (PEP) Pending Gpdcu-6-Xoixipmhe Pending Cffkt-9-Qgbcrgoiq Pending Iqzm-2-Coyodtut Pending Zuwn-6-Fiismzbv Pending Gamma Globulins Pending Monoclonal Peak 3 Pending Ser Monoclonl Protein Pending Ser Monoclonal Prot 2 Pending PEP Interpretation Pending U Random Total Protein Ur Creatinine mg/dL Protein/Creatinin Ratio Urine Albumin (%) U Ucexj-2-Bwzgwqdi (%) U Cfjbb-7-Gmmvttgu (%) U Beta Globulin (%) U Gamma Globulin (%) Urine PEP Interpret
--- NOTE | 2019-01-18 12:18 | Magnetic Resonance Report ---
MR brain wo con CLINICAL HISTORY: 83 years-old Male presenting with Right leg weakness. TECHNIQUE: Multisequence, multiplanar MR imaging of the brain was performed without the use of intrav enous contrast. IV contrast: None. COMPARISON: Noncontrast CT head from 01/16/2019. FINDINGS: Localizer images: Unremarkable. Bone marrow signal intensity within the calvarium within normal limits. Normal midline sagittal structures. Proportional ventricular and sulcal prominence, likely age-relate d parenchymal volume loss. No mass effect or midline shift. No restricted diffusion or hemorrhage. Br ain parenchyma normal in appearance with preserved lilly-white differentiation. No extra-axial fluid collection. T2 skull base flow voids preserved. Bilateral cowlitz lenses are abse nt. IMPRESSION: 1. No acute intracranial abnormality. Electronically signed by: Jamie Dillon M.D. 01/18/2019 12:16 PM
[2019-01-18] MEDS: SPIRONOLACTONE 25 MG TAB PO SCH (12:27)
--- NOTE | 2019-01-18 14:16 | Hospitalist Progress Note ---
Date of Service January 18, 2019 Assessment & Plan (1) Acute decompensated heart failure: Patient is an 83 yr male with H/O CAD S/P CABG x 3 in 2002, T2DM, HTN, HLD, hypothyroidism, BPH, glaucoma, diabetic retinopathy, statin intolerance who presents from cardiology clinic due to decompensated CHF. Acute systolic and diastolic CHF exacerbation CXR reveals mild CHF, pulmonary vasc congestion and small b/l pleural effusions ECHO: Moderate LVH, EF:45-50%, grade 2 diastolic dysfunction Protein Electrophoresis pending Continue daily weight, I/Os, fluid restriction Received IV Lasix Started on spironolactone 12.5mg daily Low sodium diet Metoprolol increased to 75mg BID Monitor renal function/electrolytes Appreciate Cardiology Input Volume status improved (2) Edema: Possible right lower extremity cellulitis Venous Doppler: No evidence of deep venous thrombosis. Subcutaneous edema in the left popliteal fossa. R Foot X ray: No acute fractures or dislocations identified. Procalcitonin normal Continue Keflex Leukocytosis trending down H/O Multiple falls H/O peripheral Neuropathy as per records Ambulatory dysfunction CT head:No acute intracranial abnormality. Head MRI:No acute intracranial abnormality. PT/OT (3) CAD (coronary artery disease): H/O CABG x 3 in 2002 Continue ASA, Zetia, Metoprolol and losartan (4) T2DM (type 2 diabetes mellitus): Hb A1C:8.4 Patient prefers remaining on NovoLog 70/30 due to prior reaction to other insulins in past Consult glycemic pharmacist for management, appreciate their input (5) HTN (hypertension): Blood pressure stable Continue metoprolol, losartan Also on tamsulosin, spironolactone HCTZ on hold (6) HLD (hyperlipidemia): Continue Zetia H/O statin intolerant (7) Hypothyroidism: Continue levothyroxine TSH normal (8) BPH (benign prostatic hyperplasia): Continue Flomax, finasteride (9) Subconjunctival hemorrhage of left eye: Conservative management (10) DVT prophylaxis: Lovenox SQ Code Status Full Code Disposition: PT/OT Case Management Subjective Patient is seen and examined at bedside States right foot pain has improved Has mild right shoulder pain from recent fall Leg edema and SOB improved Denies any chest pain, nausea, abdominal pain, dizziness Family at bedside Review of Systems Review of Systems: All systems reviewed & are unremarkable except as noted in HPI & below Physical Exam Physical Exam: Physical Exam: Vitals signs as noted above General Appearance:Moderately built and nourished, no apparent distress Head: normocephalic, Atraumatic Eyes: normal inspection, EOMI Neck: supple, Trachea midline Respiratory/Chest: Normal breath sounds, CTA Cardiovascular: S1, S2, No murmur Abdomen/GI:Soft, Non tender, Bowel sounds present Extremities/Musculoskelatal:normal inspection, B/L LE edema improved, R leg erythema improved Neurologic/Psych:AAOX3, Right LE weakness 4/5 Skin: normal color, warm Results & Data Vital Signs (Past 12 Hours) Vital Signs Temp Pulse Pulse Resp BP BP Pulse Ox 01/18/19 08:00 89 01/18/19 06:58 36.6 C 84 22 139/79 93 01/18/19 03:37 37.1 C 80 22 143/78 H 93 Laboratory Results Short CBC 01/18/19 Range/Units 05:24 WBC 11.75 H (4.8-10.8) K/uL Hgb 11.9 L (14.0-18.0) g/dL Hct 34.8 L (42-52) % Plt Count 157 (130-400) K/uL BMP 01/18/19 05:24 Sodium 136 Potassium 3.6 Chloride 104 Carbon Dioxide 26 BUN 22 H Creatinine 0.94 Glucose 154 H Calcium 8.6
[2019-01-18] MEDS: LATANOPROST 0.005% OP SOLN 2.5 ML BTL OP SCH (21:32)
[2019-01-18] MEDS: METOPROLOL SUCC 25MG EXT REL TAB PO SCH (21:32)
[2019-01-19] MEDS: LEVOTHYROXINE SODIUM 75 MCG TABLET PO SCH (05:48)
[2019-01-19 05:51] LABS: Basophils # (auto) 0.01 K/uL (0-0.2); Basophils % (auto) 0.1 %; Eosinophils # (auto) 0.16 K/uL (0-0.5); Hematocrit (blood only) 34.9 % (42-52); Hemoglobin 11.7 g/dL (14.0-18.0); Immature Granulocytes # (auto) 0.02 K/uL (0.00-0.02); Immature Granulocytes % (auto) 0.2 %; Lymphocytes # (auto) 1.13 K/uL (1.2-3.4); Lymphocytes % (auto) 13.8 %; Mean Corpuscular Hemoglobin 30.6 pg (25-34); Mean Corpuscular Hgb Conc 33.5 g/dL (32-36); Mean Corpuscular Volume 91.4 fL (80-100); Mean Platelet Volume 10.3 fL (7.4-10.4); Monocytes # (auto) 1.22 K/uL (0.11-0.59); Neutrophils # (auto) 5.62 K/uL (1.4-6.5); Neutrophils % (auto) 68.9 %; Platelet Count 164 K/uL (130-400); RDW Coefficient of Variation 13.5 % (11.5-14.5); Red Blood Count 3.82 M/uL (4.7-6.1); White Blood Count 8.16 K/uL (4.8-10.8)
[2019-01-19 06:33] LABS: BUN Creatinine Ratio 25.5 (10-20); Calcium 8.5 mg/dl (8.5-10.1); Creatinine Clr Calc Pharmacy 54.6 ml/min; Est GFR (African American) 76.1; Est GFR (Non-African American) 65.6; Potassium 3.8 mmol/L (3.5-5.1)
[2019-01-19] MEDS: INSULIN HUMAN NPH SC SCH ×2 (08:32→16:50)
[2019-01-19] MEDS: BRIMONIDINE TARTRATE 0.2% 5ML OP SCH ×2 (08:34→21:43)
[2019-01-19] MEDS: INSULIN ASPART 100 UNITS/ML 3 ML PEN SC SCH ×4 (08:34→21:42)
[2019-01-19] MEDS: DORZOLAMIDE/TIMOLOL 22.3/6.8MG/ML 10 ML BTL OP SCH ×2 (08:35→21:44)
[2019-01-19] MEDS: METOPROLOL SUCC 25MG EXT REL TAB PO SCH ×2 (08:35→21:43)
[2019-01-19] MEDS: LOSARTAN POTASSIUM 50 MG TAB PO SCH (08:35)
[2019-01-19] MEDS: CYANOCOBALAMIN 500 MCG TABLET (VITAMIN B-12) PO SCH (08:35)
[2019-01-19] MEDS: SACCHAROMYCES BOULARDII 250 MG CAP PO SCH (08:36)
[2019-01-19] MEDS: CEROVITE ADV FORMULA TAB PO SCH (08:36)
[2019-01-19] MEDS: FINASTERIDE 5 MG TAB PO SCH (08:36)
[2019-01-19] MEDS: ASPIRIN 81 MG ECTAB PO SCH (08:36)
[2019-01-19] MEDS: EZETIMIBE 10 MG TABLET PO SCH (08:36)
[2019-01-19] MEDS: SPIRONOLACTONE 25 MG TAB PO SCH (08:36)
[2019-01-19] MEDS: TAMSULOSIN HCL 0.4 MG CAP PO SCH (08:36)
[2019-01-19] MEDS: POTASSIUM CHLORIDE 10 MEQ TABCR PO SCH ×2 (08:37→21:42)
[2019-01-19] MEDS: ENOXAPARIN INJ 40 MG/0.4 ML SYR SQ SCH (08:37)
[2019-01-19] MEDS: cephALEXin 250 MG CAP PO SCH ×4 (08:37→21:42)
[2019-01-19] MEDS: ACETAMINOPHEN 325 MG TAB PO PRN (08:51)
--- NOTE | 2019-01-19 10:11 | Cardiology Progress Note ---
Date of Service January 19, 2019 Assessment & Plan (1) Acute decompensated heart failure: Patient seen with subacute onset of worsening dyspnea lower extremity edema, abdominal bloating in the outpatient setting examination consistent with decompensated congestive heart failure Patient clinically improved again morning following IV diuretics Etiology uncertain question ischemic versus nonischemic deterioration. Review echocardiogram. Elevated white cell count low albumin levels observed. Serum protein electrophoresis urinary electrophoresis and CBC with differential ordered Echocardiogram with only mild LV dysfunction and no significant valvular disease Tolerating changes in medications. Mixed diastolic/systolic heart failure plan Change furosemide to oral dosing today Consider discontinuing Ma later today no frequent urination chronic complaint Agree with neurologic evaluation given chronic gait instability with patient and family concerns (2) CAD (coronary artery disease): (3) HTN (hypertension): (4) T2DM (type 2 diabetes mellitus): (5) HLD (hyperlipidemia): (6) Statin intolerance: (7) History of coronary artery bypass graft x 3: Subjective Patient seen and examined, chart, medications, telemetry reviewed. Overall feels improved with continued diuresis. Weight down 4.5 kg Denies chest pains, tachypalpitations, dizziness or lightheadedness. Patient and family still concerned regarding chronic gait instability, right leg weakness history of multiple falls Physical Exam Constitutional: WD/WN, vitals as above Eyes: PERRL, conjunctivae normal, anicteric sclerae ENMT: external ear and nose normal, oropharynx normal Neck: trachea midline, no thyromegaly Respiratory: normal respiratory effort, lungs clear to auscultation Cardiovascular: Rate/Rhythm: regular rate and regular rhythm Heart Sounds: normal S1, normal S2 and + murmur (Grade 1/6); no gallop Palpation: normal PMI Vessels: normal carotid upstroke and radial pulses present; no JVD and no carotid bruit Extremities: no edema Gastrointestinal (Abdomen): normal bowel sounds, soft, nontender, no hepatosplenomegaly Musculoskeletal: no cyanosis or clubbing, extremities motor strength 5/5 Skin: no rashes, warm and dry Neurologic: PERRL, EOMI, accommodation nl, no face palsy, no dysarthria Psychiatric: A+Ox3, euthymic affect Results & Data Vital Signs (Past 12 Hours) Vital Signs Temp Pulse Pulse Resp BP BP Pulse Ox 01/19/19 07:15 36.9 C 74 18 155/79 H 95 01/19/19 03:32 36.8 C 70 18 119/75 97 01/19/19 00:53 87 01/18/19 23:05 37.3 C 80 16 112/59 L 90 Laboratory Results Laboratory Results - last 24 hr 01/18/19 01/18/19 01/18/19 12:25 16:14 20:22 WBC RBC Hgb Hct MCV MCH MCHC RDW Std Deviation RDW Coeff of Radhames Plt Count MPV Immature Gran % (Auto) Neut % (Auto) Lymph % (Auto) [facility] % (Auto) Eos % (Auto) Baso % (Auto) Immature Gran # (Auto) Neut # (Auto) Lymph # (Auto) [place] # (Auto) Eos # (Auto) Baso # (Auto) Sodium Potassium Chloride Carbon Dioxide Anion Gap BUN Creatinine Est Cr Clr Drug Dosing Est GFR ( Amer) Est GFR (Non-Af Amer) BUN/Creatinine Ratio Glucose POC Glucose 234 H 170 H 245 H Calcium 01/19/19 01/19/19 01/19/19 05:26 05:26 07:16 WBC 8.16 RBC 3.82 L Hgb 11.7 L Hct 34.9 L MCV 91.4 MCH 30.6 MCHC 33.5 RDW Std Deviation 45.0 RDW Coeff of Radhames 13.5 Plt Count 164 MPV 10.3 Immature Gran % (Auto) 0.2 Neut % (Auto) 68.9 Lymph % (Auto) 13.8 [facility] % (Auto) 15.0 Eos % (Auto) 2.0 Baso % (Auto) 0.1 Immature Gran # (Auto) 0.02 Neut # (Auto) 5.62 Lymph # (Auto) 1.13 L [facility] # (Auto) 1.22 H Eos # (Auto) 0.16 Baso # (Auto) 0.01 Sodium 138 Potassium 3.8 Chloride 104 Carbon Dioxide 26 Anion Gap 8.0 BUN 27 H Creatinine 1.04 Est Cr Clr Drug Dosing 54.6 Est GFR ( Amer) 76.1 Est GFR (Non-Af Amer) 65.6 BUN/Creatinine Ratio 25.5 H Glucose 167 H POC Glucose 193 H Calcium 8.5
[2019-01-19] MEDS: FUROSEMIDE 40 MG TAB PO SCH (11:36)
[2019-01-19] MEDS: INSULIN ASPART 100 UNITS/ML 3 ML PEN SC ONE (12:46)
--- NOTE | 2019-01-19 13:20 | Pharmacy Report ---
Pharmacy Glycemic Short Note 2 - Date of Service January 19, 2019 - Glycemic Short BSG Results (Last 24 hours): 01/18/19 01/18/19 01/19/19 16:14 20:22 05:26 Glucose 167 H POC Glucose 170 H 245 H 01/19/19 01/19/19 01/19/19 07:16 11:14 11:15 Glucose POC Glucose 193 H 377 H* 396 H* OUTPATIENT ANTIDIABETIC REGIMEN: * Metformin 1 g po BIDM * Novolog mix 20 units SC BIDM ASSESSMENT: * 83 yo M with decently controlled T2DM as outpatient * BSG's increased yesterday and today, ranging 170-396 mg/dL. CHO ratio was tightened at dinner yesterday. Would normally not tighten further at this time as have not potentially had an adequate time to assess trend based on the previous change, but significant BSG spike from breakfast to lunch today (193 to 396 mg/dL) after patient consumed significantly more CHO than previous meals, strongly suggestive of insufficient prandial insulin. Therefore will tighten CHO further * AM fasting BSG also elevated - will increase NPH dose * Of note, I spent about 45 minutes discussing glycemic control with the patient and his (daughter also present). noted that Yg's responses with regards to insulin are "not normal" and she was concerned that for him, insulin was *increasing* his BSG. casting cleaner and Dr. Martell also talked with the patient and his , but she persisted in not wanting an increase in insulin at lunch today despite BSG close to 400 mg/dL. After extensive discussion, patient and were on board with tightened insulin parameters and lunch today, although this did delay insulin administration at lunch somewhat. I spoke w RN (Ankita) and requested that pre-dinner BSG be checked as late as possible (aka immediately prior to eating dinner) PLAN FOR INPATIENT GLYCEMIC CONTROL: * Hold outpatient oral diabetes medications * Basal insulin: NPH SQ BID * 10 units for BSG less than 110 mg/dL * 15 units for BSG 110 mg/dL or greater * Bolus insulin * NovoLog per scale ACHS or Q6hrs while NPO * Goal Range: Low 110 mg/dL - High 140 mg/dL * Correction Factor: 20 mg/dL/unit * Nutritional / Prandial insulin per carb ratio of 1 unit per 5 grams CHO consumed PLAN FOR DISCHARGE: * See 01/18 note
--- NOTE | 2019-01-19 14:04 | Neurology Consultation ---
Date of Consultation January 19, 2019 Assessment & Plan (1) Gait abnormality: 1. PT/OT for further evaluation- walking with a walker today- RLE pain - heel but tandem gait 2. MRI - no acute findings 3. family input for gait issues- appear to have LE cellulitis and pain in heel on right 4. cardiology following for CHF 5. TEDS may be helpful for LE edema 6. primary team for further medical management 7. further recommendations to follow Supervising Physician Co-Signing Physician Notes I have seen and discussed above patient with Dr Berna Paniagua, neurology. Pt seen and examined. Pt reports abnl gait x 1-2 years with RLE freezing at times. Denies actual weakness, no significant back pain. Pt loses balance with turns. Pt with known neuropathy.Some urinary incontinence. MRIbrain reviewed, no NPH, mild vascular changes, atrophy Exam skew deviation, no facial masking or asymm. No cogwheeling, no rest tremor. Strength UE, LE symm. Absent AJ, toes down no cerebellar ataxia. Vib present at toes, temp level above knees. Gait antalgic with walker, rle ext rotated, does not appear Parkinsonian, no freezing noted. Imp Pt family described what sounds like lower 1/2 parkinsonism, exam showing neuropathy, no Parkinsonian features. Rec labs for other causes of neuropathy that DM (B12, folate, tsh RPR). Will attempt to ambulate tomorrow to see if etiology of gait pblms more clear. At present his neuropathy appears to be significant enough to cause postural instability. Will follow with you SOFIA Paniagua MD History of Present Illness Reason for Consultation: Right leg weakness Requesting Physician: Low Martell MD Attending Physician: Low Martell MD History of Present Illness Yg is a 83 year old male with PMH- CAD history of CABG x 3 in 2002, DM2, HTN, HLD, hypothyroidism, BPH, glaucoma, diabetic retinopathy, statin intolerancepresents to [facility] as a direct admission from cardiology clinic due to decompensated CHF. Over the past 1.5 weeks he has noticed increase in lower extremity swelling, right greater than left, shortness of breath with exertion, 2-3 pillow orthopnea, minimal dry cough. He admits to chronic left lower extremity swelling ever since CABG, but now his R LE is swollen and erythema. His family was concerned he was having RLE weakness but he states there is no weakness he has pain and states his foot and ankle on the R are swollen. denies CP, SOB, abdominal pain, one sided weakness, numbness tingling, N,V, new bowel or bladder symptoms. Allergies Allergy/AdvReac Type Severity Reaction Status Date / Time atorvastatin [From Lipitor] AdvReac Intermediate muscle pain Verified 01/16/19 16:24 rosuvastatin AdvReac Intermediate muscle pain Verified 01/16/19 16:24 simvastatin AdvReac Intermediate muscle pain Verified 01/16/19 16:24 lisinopril AdvReac Unknown Verified 01/16/19 16:24 Home Medications Home Medications Medication Instructions Recorded Confirmed Type amoxicillin 2,000 mg PO DAILY PRN 01/16/19 01/16/19 History aspirin [Aspir-81] 81 mg PO DAILY 01/16/19 01/16/19 History brimonidine 1 drp OPHTHALMIC (EYE) BID 01/16/19 01/16/19 History cyanocobalamin (vitamin B-12) 1,000 mcg SUBLINGUAL DAILY 01/16/19 01/16/19 History diclofenac sodium 4 g TOPICAL QID 01/16/19 01/16/19 History dorzolamide-timolol (PF) [Cosopt 1 drp OPHTHALMIC (EYE) BID 01/16/19 01/16/19 History (PF)] ezetimibe 10 mg PO DAILY 01/16/19 01/16/19 History finasteride 5 mg PO DAILY 01/16/19 01/16/19 History hydrochlorothiazide 25 mg PO 3XWK 01/16/19 01/16/19 History insulin asp prt-insulin aspart 20 unit SUBCUT BID 01/16/19 01/16/19 History [Novolog Mix 70-30FlexPen U-100] latanoprost 1 drp OPHTHALMIC (EYE) PM 01/16/19 01/16/19 History levothyroxine 75 mcg PO DAILY 01/16/19 01/16/19 History losartan 50 mg PO DAILY 01/16/19 01/16/19 History metformin 1,000 mg PO BIDM 01/16/19 01/16/19 History metoprolol tartrate 50 mg PO BID 01/16/19 01/16/19 History tamsulosin 0.4 mg PO DAILY 01/16/19 01/16/19 History vit C-E-zinc [id number]-[id number] 1 tab PO BID 01/16/19 01/16/19 History [[facility]] Patient History Medical History CAD (coronary artery disease) T2DM (type 2 diabetes mellitus) HTN (hypertension) HLD (hyperlipidemia) Hypothyroidism BPH (benign prostatic hyperplasia) Glaucoma Diabetic proliferative retinopathy Statin intolerance Surgical History History of coronary artery bypass graft x 3 PTCA R Coronary 1992 MORALES 2002 to LAD, SVG -1st diag, obtuse and posterior descending History of cataract extraction Family History Father , 71 Stroke Diabetes Mother , 79 Dementia Brother Coronary heart disease Diabetes CHF (congestive heart failure) Social History Preferred Language: Yakut Communication Ability: Effective Beliefs That Will Affect Care: Rastafari Rastafari Beliefs: Sabianism marital status: Current Living Situation: Spouse Other Information That Helps Us Care for You: No Feels Safe at Home: Yes Smoking Status: Never smoker Hx Alcohol Use: Yes Alcohol type: beer Alcohol Intake Frequency: Rarely Hx Substance Use: No Physical Exam Physical Exam: Physical Exam: Constitutional: appearance nourished, healthy and normal Ears, Nose, Mouth and Throat: mucous membranes moist, no injection and skin normal, eyes normal Cardiovascular: normal S-1 and S-2 and regular rate and rhythm Respiratory: course breath sounds Musculoskeletal: 2+ pitting edema right LE, pulses are difficult to palpate bilaterally > R, right heel tender with palpation Skin: venous stasis right LE possible cellulitis Eyes: extraocular muscles intact (EOMI) and pupils equal, round and reactive to light (PERRL) NEUROLOGIC EXAMINATION: Mental status: Alert and interactive Oriented to full date and location Oriented to person Speech fluent with no evidence of aphasia Cranial Nerves smile eye brow raise symmetric Reflexes: Deep tendon reflexes were symmetrical and graded 2/5. Plantar responses were neutral Sensory: light and cool touch Coordination: finger to nose no bi pass, heel to luther no dysmetry Gait/Stance: Posture normal. Gait normal: with steady with steps, base, turning, and tandem gait low amplitude, walking with walker Motor: Negative for pronator drift of out stretched arms with eyes closed. 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 hip flex bilaterally 5/5 plantar flex ext L 5/5 R 4+/5 Results & Data Vital Signs (Past 12 Hours) Vital Signs Temp Pulse Pulse Resp BP BP Pulse Ox 01/19/19 11:20 36.4 C L 66 18 120/67 96 01/19/19 08:00 71 01/19/19 07:15 36.9 C 74 18 155/79 H 95 01/19/19 03:32 36.8 C 70 18 119/75 97 Laboratory Results Abnormal lab results 01/18/19 01/18/19 01/19/19 Range/Units 16:14 20:22 05:26 RBC 3.82 L (4.7-6.1) M/uL Hgb 11.7 L (14.0-18.0) g/dL Hct 34.9 L (42-52) % Lymph # (Auto) 1.13 L (1.2-3.4) K/uL [place] # (Auto) 1.22 H (0.11-0.59) K/uL BUN (7-18) mg/dl BUN/Creatinine Ratio (10-20) Glucose (70-99) mg/dl POC Glucose 170 H 245 H (70-99) 01/19/19 01/19/19 01/19/19 Range/Units 05:26 07:16 11:14 RBC (4.7-6.1) M/uL Hgb (14.0-18.0) g/dL Hct (42-52) % Lymph # (Auto) (1.2-3.4) K/uL [place] # (Auto) (0.11-0.59) K/uL BUN 27 H (7-18) mg/dl BUN/Creatinine Ratio 25.5 H (10-20) Glucose 167 H (70-99) mg/dl POC Glucose 193 H 377 H* (70-99) 01/19/19 Range/Units 11:15 RBC (4.7-6.1) M/uL Hgb (14.0-18.0) g/dL Hct (42-52) % Lymph # (Auto) (1.2-3.4) K/uL [place] # (Auto) (0.11-0.59) K/uL BUN (7-18) mg/dl BUN/Creatinine Ratio (10-20) Glucose (70-99) mg/dl POC Glucose 396 H* (70-99) Diagnostic Findings foot x ray-No acute fractures or dislocations are visualized. There are mild osteoarthritic changes. There is a small periarticular calcification at the level of the proximal to phalangeal joint of the fifth toe. There is Achilles insertional spur and plantar calcaneal spur. There are vascular calcifications present. MRI brain -No acute intracranial abnormality. TTE- EF 45-50% no ASD venous doppler-No evidence of deep venous thrombosis. Subcutaneous edema in the left popliteal fossa.
--- NOTE | 2019-01-19 17:07 | Hospitalist Progress Note ---
Date of Service January 19, 2019 Assessment & Plan (1) Acute decompensated heart failure: Patient is an 83 yr male with H/O CAD S/P CABG x 3 in 2002, T2DM, HTN, HLD, hypothyroidism, BPH, glaucoma, diabetic retinopathy, statin intolerance who presents from cardiology clinic due to decompensated CHF. Acute systolic and diastolic CHF exacerbation CXR reveals mild CHF, pulmonary vasc congestion and small b/l pleural effusions ECHO: Moderate LVH, EF:45-50%, grade 2 diastolic dysfunction Protein Electrophoresis pending Continue daily weight, I/Os, fluid restriction Received IV Lasix Continue Lasix 40mg daily Also on spironolactone 12.5mg daily Low sodium diet Metoprolol increased to 75mg BID Monitor renal function/electrolytes Appreciate Cardiology Input Volume status improved (2) Edema: Possible right lower extremity cellulitis Venous Doppler: No evidence of deep venous thrombosis. Subcutaneous edema in the left popliteal fossa. R Foot X ray: No acute fractures or dislocations identified. Procalcitonin normal Continue Keflex Day #4 Leukocytosis normalized H/O Multiple falls Chronic Right LE weakness H/O peripheral Neuropathy as per records Ambulatory dysfunction CT head:No acute intracranial abnormality. Head MRI:No acute intracranial abnormality. PT/OT Consulted Neurology for Input Chronic kidney disease, stage 2 Cr at baseline Monitor renal function Avoid Nephrotoxic agents as able (3) CAD (coronary artery disease): H/O CABG x 3 in 2002 Continue ASA, Zetia, Metoprolol and losartan (4) T2DM (type 2 diabetes mellitus): Hb A1C:8.4 Patient prefers remaining on NovoLog 70/30 due to prior reaction to other insulins in past Consult glycemic pharmacist for management, appreciate their input Continue Insulin therapy (5) HTN (hypertension): Blood pressure stable Continue metoprolol, losartan Also on tamsulosin, spironolactone HCTZ on hold (6) HLD (hyperlipidemia): Continue Zetia H/O statin intolerant (7) Hypothyroidism: Continue levothyroxine TSH normal (8) BPH (benign prostatic hyperplasia): Continue Flomax, finasteride (9) Subconjunctival hemorrhage of left eye: Conservative management (10) DVT prophylaxis: Lovenox SQ Code Status Full Code Disposition: PT/OT Case Management Subjective Patient is seen and examined at bedside Patient/Family concerned about right leg weakness, gait instability and falls Hyperglycemic today No other complaints Denies any chest pain, nausea, abdominal pain, dizziness Family at bedside Review of Systems Review of Systems: All systems reviewed & are unremarkable except as noted in HPI & below Physical Exam Physical Exam: Physical Exam: Vitals signs as noted above General Appearance:Moderately built and nourished, no apparent distress Head: normocephalic, Atraumatic Eyes: normal inspection, EOMI Neck: supple, Trachea midline Respiratory/Chest: Normal breath sounds, CTA Cardiovascular: S1, S2, No murmur Abdomen/GI:Soft, Non tender, Bowel sounds present Extremities/Musculoskelatal:normal inspection, B/L LE edema improved, R leg erythema improved Neurologic/Psych:AAOX3, Right LE weakness 4/5 Skin: normal color, warm Results & Data Vital Signs (Past 12 Hours) Vital Signs Temp Pulse Pulse Resp BP Pulse Ox 01/19/19 15:22 36.6 C 70 16 126/74 98 01/19/19 14:02 98 01/19/19 11:20 36.4 C L 66 18 120/67 96 01/19/19 08:00 71 01/19/19 07:15 36.9 C 74 18 155/79 H 95 Laboratory Results Short CBC 01/19/19 Range/Units 05:26 WBC 8.16 (4.8-10.8) K/uL Hgb 11.7 L (14.0-18.0) g/dL Hct 34.9 L (42-52) % Plt Count 164 (130-400) K/uL BMP 01/19/19 05:26 Sodium 138 Potassium 3.8 Chloride 104 Carbon Dioxide 26 BUN 27 H Creatinine 1.04 Glucose 167 H Calcium 8.5
[2019-01-19] MEDS: LATANOPROST 0.005% OP SOLN 2.5 ML BTL OP SCH (21:44)
[2019-01-20] MEDS: INSULIN ASPART 100 UNITS/ML 3 ML PEN SC ONE (00:43)
[2019-01-20] MEDS: LEVOTHYROXINE SODIUM 75 MCG TABLET PO SCH (05:39)
[2019-01-20 06:51] LABS: BUN Creatinine Ratio 30.4 (10-20); Calcium 8.7 mg/dl (8.5-10.1); Creatinine Clr Calc Pharmacy 62.4 ml/min; Est GFR (African American) 89.4; Est GFR (Non-African American) 77.1
[2019-01-20] MEDS: TAMSULOSIN HCL 0.4 MG CAP PO SCH (08:45)
[2019-01-20] MEDS: METOPROLOL SUCC 25MG EXT REL TAB PO SCH ×2 (08:45→20:38)
[2019-01-20] MEDS: CYANOCOBALAMIN 500 MCG TABLET (VITAMIN B-12) PO SCH (08:46)
[2019-01-20] MEDS: LOSARTAN POTASSIUM 50 MG TAB PO SCH (08:47)
[2019-01-20] MEDS: SPIRONOLACTONE 25 MG TAB PO SCH (08:47)
[2019-01-20] MEDS: POTASSIUM CHLORIDE 10 MEQ TABCR PO SCH ×2 (08:47→20:38)
[2019-01-20] MEDS: BRIMONIDINE TARTRATE 0.2% 5ML OP SCH ×2 (08:49→20:37)
[2019-01-20] MEDS: cephALEXin 250 MG CAP PO SCH ×4 (08:49→20:40)
[2019-01-20] MEDS: FINASTERIDE 5 MG TAB PO SCH (08:50)
[2019-01-20] MEDS: EZETIMIBE 10 MG TABLET PO SCH (08:50)
[2019-01-20] MEDS: DORZOLAMIDE/TIMOLOL 22.3/6.8MG/ML 10 ML BTL OP SCH ×2 (08:50→20:37)
[2019-01-20] MEDS: ENOXAPARIN INJ 40 MG/0.4 ML SYR SQ SCH (08:50)
[2019-01-20] MEDS: SACCHAROMYCES BOULARDII 250 MG CAP PO SCH (08:51)
[2019-01-20] MEDS: FUROSEMIDE 40 MG TAB PO SCH (08:51)
[2019-01-20] MEDS: CEROVITE ADV FORMULA TAB PO SCH (08:51)
[2019-01-20] MEDS: ASPIRIN 81 MG ECTAB PO SCH (08:51)
[2019-01-20] MEDS: INSULIN ASPART 100 UNITS/ML 3 ML PEN SC SCH ×4 (08:52→20:40)
[2019-01-20] MEDS: INSULIN HUMAN NPH SC SCH ×2 (08:57→17:00)
--- NOTE | 2019-01-20 11:39 | Pharmacy Report ---
Pharmacy Glycemic Short Note 2 - Date of Service January 20, 2019 - Glycemic Short BSG Results (Last 24 hours): 01/19/19 01/19/19 01/20/19 16:36 20:25 00:15 Glucose POC Glucose 211 H 71 124 H 01/20/19 01/20/19 01/20/19 04:02 05:33 07:39 Glucose 130 H POC Glucose 111 H 148 H OUTPATIENT ANTIDIABETIC REGIMEN: * Metformin 1 g po BIDM * Novolog mix 20 units SC BIDM Patient is currently receiving: * Basal insulin: NPH SQ BID * 10 units for BSG less than 110 mg/dL * 15 units for BSG 110 mg/dL or greater * Bolus insulin * NovoLog per scale ACHS or Q6hrs while NPO * Goal Range: Low 110 mg/dL - High 140 mg/dL * Correction Factor: 20 mg/dL/unit * Nutritional / Prandial insulin per carb ratio of 1 unit per 5 grams CHO consumed ASSESSMENT: * 83 yo M with decently controlled T2DM as outpatient * BSG's responded well after parameters tightened yesterday, with the exception of a BSG of 71 mg/dL at HS which is below goal. This may be due to correction factor tightened, or be due to effects of NPH being greater in the evening as compared to the morning. Insulin stacking due to later administration of Novolog at lunch yesterday (see note from 01/19) may also have contributed * Will maintain tighter correction factor and carb ratio for breakfast only as effects of NPH from previous day will likely have dissipated and effects of AM NPH will not have had adequate time to work * Will loosen correction factor and carb ratio for all other checks apart from breakfast * AM fasting BSG at 148 mg/dL and overnight BSG's x2 were also good (124 and 111 mg/dL) - no change to basal insulin needed at this time PLAN FOR INPATIENT GLYCEMIC CONTROL: Hold outpatient oral diabetes medications Basal insulin: NPH SQ BID * 10 units for BSG less than 100 mg/dL * 15 units for BSG 100 mg/dL or greater Bolus insulin - loosen @ lunch/dinner/HS * NovoLog @ breakfast * Goal Range: Low 110 mg/dL - High 140 mg/dL * Correction Factor: 20 mg/dL/unit * Nutritional / Prandial insulin per carb ratio of 1 unit per 5 grams CHO consumed * NovoLog @ lunch, dinner, HS * Goal Range: Low 110 mg/dL - High 140 mg/dL * Correction Factor: 25 mg/dL/unit * Nutritional / Prandial insulin per carb ratio of 1 unit per 6 grams CHO consumed PLAN FOR DISCHARGE: * See 01/18 note
[2019-01-20 12:01] LABS: Folate (Folic Acid) > 24.00 ng/ml (>5.38); Vitamin B12 955 pg/ml (211-911)
--- NOTE | 2019-01-20 15:03 | Cardiology Progress Note ---
Date of Service January 20, 2019 Assessment & Plan (1) Acute decompensated heart failure: Patient seen with subacute onset of worsening dyspnea lower extremity edema, abdominal bloating in the outpatient setting examination consistent with decompensated congestive heart failure Clinically improved, IV diuretics switched to oral hemodynamically stable. We will continue all current therapies Main complaint today right foot pain. Arterial duplex ordered right lower extremity. Consider empiric treatment of gout (2) CAD (coronary artery disease): (3) HTN (hypertension): Better controlled (4) T2DM (type 2 diabetes mellitus): (5) HLD (hyperlipidemia): (6) Statin intolerance: (7) History of coronary artery bypass graft x 3: Subjective Patient seen and examined, chart, medications, telemetry reviewed. Patient feels more comfortable respiratory and abdominal gomez. Still has difficulty with pain in his right foot. Foot more erythematous today Denies fevers chills or productive cough Trace 1+ edema lower extremities Weight has been stabilizing intake/urinary output still negative Physical Exam Constitutional: WD/WN, vitals as above Eyes: PERRL, conjunctivae normal, anicteric sclerae ENMT: external ear and nose normal, oropharynx normal Neck: trachea midline, no thyromegaly Respiratory: normal respiratory effort, lungs clear to auscultation Cardiovascular: Rate/Rhythm: regular rate and regular rhythm Heart Sounds: normal S1, normal S2 and + murmur (Grade 1/6); no gallop Palpation: normal PMI Vessels: normal carotid upstroke and radial pulses present; no JVD and no carotid bruit Extremities: no edema Gastrointestinal (Abdomen): normal bowel sounds, soft, nontender, no hepatosplenomegaly Musculoskeletal: Right foot erythematous though with relatively good capillary refill. No femoral bruits diminished dorsalis pedis and posterior tibialis pulses. No skin breakdown Skin: no rashes, warm and dry Neurologic: PERRL, EOMI, accommodation nl, no face palsy, no dysarthria Psychiatric: A+Ox3, euthymic affect Results & Data Vital Signs (Past 12 Hours) Vital Signs Temp Pulse Resp BP BP Pulse Ox 01/20/19 11:24 36.5 C 70 18 148/68 H 99 01/20/19 07:47 36.4 C L 76 18 138/79 97 01/20/19 04:00 36.7 C 64 18 146/83 H 94 Laboratory Results Laboratory Results - last 24 hr 11/11/19 11/11/19 11/12/19 16:36 20:25 00:15 Sodium Potassium Chloride Carbon Dioxide Anion Gap BUN Creatinine Est Cr Clr Drug Dosing Est GFR ( Amer) Est GFR (Non-Af Amer) BUN/Creatinine Ratio Glucose POC Glucose 211 H 71 124 H Calcium Vitamin B12 Folate RPR 01/20/19 01/20/19 01/20/19 04:02 05:33 07:39 Sodium 140 Potassium 4.0 Chloride 107 Carbon Dioxide 26 Anion Gap 7.0 BUN 28 H Creatinine 0.91 Est Cr Clr Drug Dosing 62.4 Est GFR ( Amer) 89.4 Est GFR (Non-Af Amer) 77.1 BUN/Creatinine Ratio 30.4 H Glucose 130 H POC Glucose 111 H 148 H Calcium 8.7 Vitamin B12 Folate RPR 01/20/19 01/20/19 01/20/19 11:08 11:08 11:11 Sodium Potassium Chloride Carbon Dioxide Anion Gap BUN Creatinine Est Cr Clr Drug Dosing Est GFR ( Amer) Est GFR (Non-Af Amer) BUN/Creatinine Ratio Glucose POC Glucose 278 H Calcium Vitamin B12 955 H Folate > 24.00 RPR Pending
--- NOTE | 2019-01-20 15:45 | Neurology Progress Note ---
Date of Service January 20, 2019 Assessment & Plan (1) Gait abnormality: 1. PT/OT for further evaluation- walking with a walker today- RLE pain - heel but tandem gait 2. MRI - no acute findings 3. family input for gait issues- appear to have LE cellulitis and pain in heel on right 4. cardiology following for CHF 5. TEDS may be helpful for LE edema 6. primary team for further medical management 7. after foot pain has resolve will evaluate in our office for any further recommendations 8. need to use walker with ambulation neurology follow up 4-6 weeks Berna Padilla PAC schedule Supervising Physician Co-Signing Physician Notes I have seen and discussed above patient with Dr Berna Paniagua, neurology See my note from today. SOFIA Paniagua MD Guillaume Ronquillo is a 83 year old male with PMH- CAD history of CABG x 3 in 2002, DM2, HTN, HLD, hypothyroidism, BPH, glaucoma, diabetic retinopathy, statin intolerance presents to [facility] as a direct admission from cardiology clinic due to decompensated CHF. Over the past 1.5 weeks he has noticed increase in lower extremity swelling, right greater than left, shortness of breath with exertion, 2-3 pillow orthopnea, minimal dry cough. He admits to chronic left lower extremity swelling ever since CABG, but now his R LE is swollen and erythema. His family was concerned he was having RLE weakness but he states there is no weakness he has pain and states his foot and ankle on the R are swollen. he was up and walking with PT again today his states he did well. he thinks he is ready to go home. His foot is better but still has some pain with walking on heel. He was not using a walker at home prior to this admission but he state his will start using it at home. denies CP, SOB, abdominal pain, one sided weakness, numbness tingling, N,V, new bowel or bladder symptoms. 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 5/5 bilaterally hip flex 5/5 plantar flex ext 5/5 no resting tremor or reaching tremor no cogwheeling no pronator drift Results & Data Vital Signs (Past 12 Hours) Vital Signs Temp Pulse Resp BP BP Pulse Ox 01/20/19 11:24 36.5 C 70 18 148/68 H 99 01/20/19 07:47 36.4 C L 76 18 138/79 97 01/20/19 04:00 36.7 C 64 18 146/83 H 94 Laboratory Results Abnormal lab results 01/19/19 01/20/19 01/20/19 Range/Units 16:36 00:15 04:02 BUN (7-18) mg/dl BUN/Creatinine Ratio (10-20) Glucose (70-99) mg/dl POC Glucose 211 H 124 H 111 H (70-99) Vitamin B12 (211-911) pg/ml 01/20/19 01/20/19 01/20/19 Range/Units 05:33 07:39 11:08 BUN 28 H (7-18) mg/dl BUN/Creatinine Ratio 30.4 H (10-20) Glucose 130 H (70-99) mg/dl POC Glucose 148 H (70-99) Vitamin B12 955 H (211-911) pg/ml 01/20/19 Range/Units 11:11 BUN (7-18) mg/dl BUN/Creatinine Ratio (10-20) Glucose (70-99) mg/dl POC Glucose 278 H (70-99) Vitamin B12 (211-911) pg/ml Diagnostic Findings no new imaging
--- NOTE | 2019-01-20 17:04 | Ultrasound Report ---
US arterial duplex LE RT CLINICAL HISTORY: 83 years-old Male presenting with erythema pain right foot. TECHNIQUE: Real-time grayscale and color and spectral Doppler ultrasound imaging of the right lower e xtremity arteries was performed. Measurements calculated based on NASCET criteria. COMPARISON: None. FINDINGS: RIGHT: Common femoral artery: Atherosclerotic plaque with some degree of visual stenosis.. Biphasic waveform s. Peak systolic velocity (PSV) 129 cm/s. Deep femoral artery: Patent. Biphasic waveforms. PSV 49 cm/s. Superficial femoral artery: Atherosclerosis with focal stenosis distally. Monophasic waveforms. PSV 7 5 cm/s proximally, 105 cm/s in the midportion, and 357 cm/s distally. Popliteal artery: Patent. Monophasic waveforms. PSV 236 cm/s proximally just beyond the site of dista l superficial femoral stenosis, 132 cm/s in the midportion, and 66 cm/s distally. Anterior tibial artery: Patent. Monophasic waveforms. PSV 65 cm/s. Posterior tibial artery: Patent. Monophasic waveforms. PSV 17 cm/s. Peroneal artery: Patent. Monophasic waveforms. PSV 106 cm/s. Dorsalis pedis: Patent. Monophasic waveforms. PSV 124 cm/s. ANKLE/BRACHIAL INDEX (CARY): Unable to perform due to noncompressibility of lower extremity vessels. Brachial: Right: 158 mmHg. Left: 152 mmHg. Ankle (posterior tibial): Right: mmHg. Left: mmHg. Ankle (dorsalis pedis): Right: mmHg. Left: mmHg. Ankle/brachial index: Right: , Left: . Reference ranges: Normal Ankle/Brachial Index (CARY) 1.0-1.4; 0.91-0.99 borderline; < or = 0.9 abnormal (0.7-0.89 mild, 0.51-0.69 moderate, < or = 0.5 severe peripheral arterial disease). Normal Toe/Brachial Index (TBI) > or = 0.6; < 0.6 abnormal (0.34-0.59 mild, 0.12-0.34 moderate, < or = 0.11 severe peripheral arterial disease). IMPRESSION: 1. Hemodynamically significant stenosis secondary to atherosclerosis in the distal right superficial femoral artery. Vascular surgical consultation is advised. 2. Patent right lower extremity vessels. 3. Unable to perform ankle-brachial indices. The report will be called/faxed according to standard departmental protocol. Electronically signed by: Jamie Dillon M.D. 01/20/2019 5:02 PM
[2019-01-20] MEDS ORDERED: Heparin IV Standard *NO* Bolus IV SCH (18:05)
--- NOTE | 2019-01-20 18:06 | Hospitalist Progress Note ---
Date of Service January 20, 2019 Assessment & Plan (1) Acute decompensated heart failure: Patient is an 83 yr male with H/O CAD S/P CABG x 3 in 2002, T2DM, HTN, HLD, hypothyroidism, BPH, glaucoma, diabetic retinopathy, statin intolerance who presents from cardiology clinic due to decompensated CHF. Acute systolic and diastolic CHF exacerbation CXR reveals mild CHF, pulmonary vasc congestion and small b/l pleural effusions ECHO: Moderate LVH, EF:45-50%, grade 2 diastolic dysfunction Protein Electrophoresis pending Continue daily weight, I/Os, fluid restriction Received IV Lasix Continue Lasix 40mg daily Also on spironolactone 12.5mg daily Low sodium diet Metoprolol increased to 75mg BID Monitor renal function/electrolytes Appreciate Cardiology Input Monitor Volume status (2) Edema: Right superficial femoral artery stenosis-POA --Arterial Doppler:Hemodynamically significant stenosis secondary to atherosclerosis in the distal right superficial femoral artery. Vascular surgical consultation is advised. Patent right lower extremity vessels. Unable to perform ankle-brachial indices. Possible right lower extremity cellulitis Venous Doppler: No evidence of deep venous thrombosis. Subcutaneous edema in the left popliteal fossa. R Foot X ray: No acute fractures or dislocations identified. Procalcitonin normal Continue Keflex Day #5 Leukocytosis normalized Stared on IV heparin Consulted Vascular Surgery H/O Multiple falls Chronic Right LE weakness H/O peripheral Neuropathy as per records Ambulatory dysfunction CT head:No acute intracranial abnormality. Head MRI:No acute intracranial abnormality. PT/OT Normal folate, B 12, TSH RPR:pending Appreciate Neurology Input Chronic kidney disease, stage 2 Cr at baseline Monitor renal function Avoid Nephrotoxic agents as able (3) CAD (coronary artery disease): H/O CABG x 3 in 2002 Continue ASA, Zetia, Metoprolol and losartan (4) T2DM (type 2 diabetes mellitus): Hb A1C:8.4 Patient prefers remaining on NovoLog 70/30 due to prior reaction to other insulins in past Consult glycemic pharmacist for management, appreciate their input Continue Insulin therapy (5) HTN (hypertension): Blood pressure stable Continue metoprolol, losartan Also on tamsulosin, spironolactone HCTZ on hold (6) HLD (hyperlipidemia): Continue Zetia H/O statin intolerant (7) Hypothyroidism: Continue levothyroxine TSH normal (8) BPH (benign prostatic hyperplasia): Continue Flomax, finasteride (9) Subconjunctival hemorrhage of left eye: Conservative management (10) DVT prophylaxis: On IV heparin Code Status Full Code Disposition: PT/OT Case Management Subjective Patient is seen and examined at bedside Minimal right foot pain More erythematous R foot today No other complaints Denies any chest pain, SOB, nausea, abdominal pain, dizziness Family at bedside Review of Systems Review of Systems: All systems reviewed & are unremarkable except as noted in HPI & below Physical Exam Physical Exam: Physical Exam: Vitals signs as noted above General Appearance:Moderately built and nourished, no apparent distress Head: normocephalic, Atraumatic Eyes: normal inspection, EOMI Neck: supple, Trachea midline Respiratory/Chest: Normal breath sounds, CTA Cardiovascular: S1, S2, No murmur Abdomen/GI:Soft, Non tender, Bowel sounds present Extremities/Musculoskelatal:normal inspection, B/L LE edema improved, R leg erythema improved Neurologic/Psych:AAOX3, Right LE weakness 4/5 Skin: normal color, warm Results & Data Vital Signs (Past 12 Hours) Vital Signs Temp Pulse Resp BP BP Pulse Ox 01/20/19 11:24 36.5 C 70 18 148/68 H 99 01/20/19 07:47 36.4 C L 76 18 138/79 97 Laboratory Results [facility] 01/20/19 05:33 Sodium 140 Potassium 4.0 Chloride 107 Carbon Dioxide 26 BUN 28 H Creatinine 0.91 Glucose 130 H Calcium 8.7
[2019-01-20 19:06] LABS: Albumin 2.9 G/DL (3.8-4.8); Alpha 1 Globulin 0.5 G/DL (0.2-0.3); Alpha 2 Globulin 0.7 G/DL (0.5-0.9); Beta-1-Globulin 0.3 G/DL (0.4-0.6); Beta-2-Globulin 0.4 G/DL (0.2-0.5); Gamma Globulin 0.7 G/DL (0.8-1.7); Monoclonal Protein Band 1 DNR G/DL (NOT DETECTED); Monoclonal Protein Band 2 DNR G/DL (NOT DETECTED); Monoclonal Protein Band 3 DNR G/DL (NOT DETECTED); Total Protein 5.5 G/DL (6.2-8.3)
[2019-01-20 19:33] LABS: Basophils # (auto) 0.02 K/uL (0-0.2); Basophils % (auto) 0.4 %; Eosinophils # (auto) 0.24 K/uL (0-0.5); Eosinophils % (auto) 4.3 %; Hematocrit (blood only) 38.8 % (42-52); Immature Granulocytes # (auto) 0.02 K/uL (0.00-0.02); Immature Granulocytes % (auto) 0.4 %; Lymphocytes # (auto) 0.99 K/uL (1.2-3.4); Lymphocytes % (auto) 17.6 %; Mean Corpuscular Volume 92.4 fL (80-100); Mean Platelet Volume 10.1 fL (7.4-10.4); Monocytes # (auto) 0.96 K/uL (0.11-0.59); Monocytes % (auto) 17.1 %; Neutrophils % (auto) 60.2 %; Platelet Count 226 K/uL (130-400); RDW Coefficient of Variation 13.4 % (11.5-14.5); RDW Standard Deviation 44.9 fL (36.4-46.3); White Blood Count 5.63 K/uL (4.8-10.8)
[2019-01-20 19:43] LABS: Mean Corpuscular Hgb Conc 33.5 g/dL (32-36)
[2019-01-20 19:48] LABS: Partial Thromboplastin Time 26.5 Seconds (21.0-31.0); Prothrombin Time 10.6 Seconds (9.0-12.0)
[2019-01-20] MEDS: HEPARIN SODIUM/DEXTROSE 25,000 UNITS/500 ML BAG IV SCH (19:52)
[2019-01-20] MEDS: LATANOPROST 0.005% OP SOLN 2.5 ML BTL OP SCH (20:39)
--- NOTE | 2019-01-20 20:54 | Progress Note ---
DATE: 01/16/2019 The patient was seen by Berna Padilla, but not by myself today as the patient was down having study. She indicated she watched the patient ambulating and saw no parkinsonian features. Plan is to reassess gait in the morning, tomorrow. The patient has clear modestly severe peripheral neuropathy, and on my exam yesterday, no signs of Parkinsonism. We will reassess tomorrow.
[2019-01-21 02:03] LABS: Hematocrit (blood only) 36.6 % (42-52); Hemoglobin 12.4 g/dL (14.0-18.0); Mean Corpuscular Hemoglobin 30.8 pg (25-34); Mean Corpuscular Hgb Conc 33.9 g/dL (32-36); Mean Corpuscular Volume 90.8 fL (80-100); Mean Platelet Volume 9.9 fL (7.4-10.4); Platelet Count 216 K/uL (130-400); RDW Coefficient of Variation 13.2 % (11.5-14.5); RDW Standard Deviation 44.1 fL (36.4-46.3); Red Blood Count 4.03 M/uL (4.7-6.1)
[2019-01-21 02:20] LABS: BUN Creatinine Ratio 23.9 (10-20); Calcium 8.7 mg/dl (8.5-10.1); Creatinine Clr Calc Pharmacy 48.5 ml/min; Est GFR (Non-African American) 56.9; Potassium 4.2 mmol/L (3.5-5.1)
[2019-01-21 02:26] LABS: Partial Thromboplastin Ratio 1.8
[2019-01-21 02:36] LABS: Partial Thromboplastin Time 47.9 Seconds (21.0-31.0)
[2019-01-21 05:11] LABS: Creatinine Ur 94 MG/DL (20-320); Protein, Urine Random 28 MG/DL (5-25); Urine Protein/Creatinine Ratio 298 (22-128)
[2019-01-21] MEDS: LEVOTHYROXINE SODIUM 75 MCG TABLET PO SCH (06:10)
[2019-01-21] MEDS: CEROVITE ADV FORMULA TAB PO SCH (09:14)
[2019-01-21] MEDS: LOSARTAN POTASSIUM 50 MG TAB PO SCH (09:14)
[2019-01-21] MEDS: CYANOCOBALAMIN 500 MCG TABLET (VITAMIN B-12) PO SCH (09:14)
[2019-01-21] MEDS: EZETIMIBE 10 MG TABLET PO SCH (09:14)
[2019-01-21] MEDS: SACCHAROMYCES BOULARDII 250 MG CAP PO SCH (09:14)
[2019-01-21] MEDS: FINASTERIDE 5 MG TAB PO SCH (09:14)
[2019-01-21] MEDS: TAMSULOSIN HCL 0.4 MG CAP PO SCH (09:14)
[2019-01-21] MEDS: FUROSEMIDE 40 MG TAB PO SCH (09:15)
[2019-01-21] MEDS: SPIRONOLACTONE 25 MG TAB PO SCH (09:15)
[2019-01-21] MEDS: METOPROLOL SUCC 25MG EXT REL TAB PO SCH ×2 (09:15→21:23)
[2019-01-21] MEDS: POTASSIUM CHLORIDE 10 MEQ TABCR PO SCH (09:16)
[2019-01-21] MEDS: ASPIRIN 81 MG ECTAB PO SCH (09:16)
[2019-01-21] MEDS: cephALEXin 250 MG CAP PO SCH ×4 (09:16→21:22)
[2019-01-21] MEDS: DORZOLAMIDE/TIMOLOL 22.3/6.8MG/ML 10 ML BTL OP SCH ×2 (09:17→21:24)
[2019-01-21] MEDS: BRIMONIDINE TARTRATE 0.2% 5ML OP SCH ×2 (09:17→21:24)
[2019-01-21] MEDS: LANTUS PER UNIT CHARGE SQ ONE ×2 (09:17→10:44)
[2019-01-21] MEDS: INSULIN ASPART 100 UNITS/ML 3 ML PEN SC SCH ×4 (09:18→21:21)
[2019-01-21] MEDS ORDERED: INSULIN DETEMIR PER UNIT CHARGE SC ONE (10:45)
--- NOTE | 2019-01-21 11:05 | Pharmacy Report ---
Pharmacy Glycemic Short Note 2 - Date of Service January 21, 2019 - Glycemic Short BSG Results (Last 24 hours): 01/20/19 01/20/19 01/20/19 11:11 16:47 20:19 Glucose POC Glucose 278 H 159 H 168 H 01/21/19 01/21/19 01:56 07:49 Glucose 111 H POC Glucose 149 H OUTPATIENT ANTIDIABETIC REGIMEN: * Metformin 1 g po BIDM * Novolog mix 70/30, 20 units SC BIDM Patient is currently receiving: Basal insulin: NPH SQ BID * 10 units for BSG less than 110 mg/dL * 15 units for BSG 110 mg/dL or greater Bolus insulin * NovoLog @ breakfast * Goal Range: Low 110 mg/dL - High 140 mg/dL * Correction Factor: 20 mg/dL/unit * Nutritional / Prandial insulin per carb ratio of 1 unit per 5 grams CHO consumed * NovoLog @ lunch, dinner, HS * Goal Range: Low 110 mg/dL - High 140 mg/dL * Correction Factor: 25 mg/dL/unit * Nutritional / Prandial insulin per carb ratio of 1 unit per 6 grams CHO consumed ASSESSMENT: * 83 yo M with decently controlled T2DM as outpatient * Changes to stressors * Heparin drip mixed in D5 started yesterday evening * NPO for possible surgery today - basal insulin of NPH is not appropriate for NPO status therefore initially switched to Lantus * Was notified by RN (Tootie) that patient/ (Marcella) refused Lantus and refused 1 unit of Novolog correctional insulin for BSG this AM. Spoke w Marcella for ~30 minutes again today. * Per Marcella, a "long time ago", patient was transitioned to Lantus for basal insulin 2nd sub-optimal control on previous basal insulin. Before initiation of Lantus, he could walk on his own w/o aid. Two days after starting Lantus, he needed a cane. One week after starting Lantus, he could not transfer on his own or get up out of a chair. Two of his sons had to support him/carry him for him to move. They saw PCP, then air bag builder, then neurologist, then orthopedic doctor for this weakness. Orthopedic doctor then said he has had all this work up, no one found anything, and suggested he stop Lantus and switch back to previous basal insulin. PCP switched back to previous basal insulin, and within one week, patient was again walking independently, without a cane. * Marcella at one point noted she would prefer no insulin at all to Lantus, stating she would sign something to that effect. * We then extensively discussed risk/benefit of NPH vs. Levemir vs. Lantus as it relates to hypoglycemic risk while NPO, implications for post-op healing and infection prevention, and risk for possible ADR based on reaction history. * Compromised with *SHORT TERM* Levemir around surgery. (Marcella) and patient strongly prefer NPH - will again use this as basal insulin if/when possible. * I will add two overnight checks as this is a low dose of Levemir for NPO status in a CHO-sensitive patient and he may require additional Novolog overnight to help keep AM fasting BSG in goal range * (Marcella) noted she would prefer goal range to be 120-150 mg/dL instead of my stated preferred post-op range of 110-140 mg/dL, stating he "just doesn't feel well" with BSG's around 110 mg/dL. I did state that goal range of 110-140 mg/dL would still be my recommendation, but considering her compromise with Lantus vs. Levemir vs. NPH I noted I would adjust the range per her request. It seems likely that not doing so would increase the risk that Novolog is refused all together, which would potentially negatively impact post-op care. Marcella expressed satisfaction with this change in goal range. * Will loosen correction factor as it seems that while the patient does require a tight carb ratio, his correctional needs are less than what would be anticipated from his sensitivity to CHO * Marcella also expressed concern that post-op meal tray would again be a "house" tray that was provided with breakfast on 01/19 which caused significant BSG spike to almost 400 mg/dL after patient consumed 70 g CHO at breakfast that day. I spoke w RN (Tootie) and requested that she help ensure CHO is limited to 45 g per meal (per previous diet parameters) when diet is ordered post-op * Of note, patient (Yg) has been present for all of my conversations with Marcella (), but he has not been an active participant in most of it. He seems most concerned with getting a bedtime snack, which I encouraged and noted this was something we can accommodate. I requested that he not snack between meals and that he notify nursing of any outside food consumed to ensure we accurately account for CHO intake. He acknowledged understanding. Afternoon update * Surgery not needed per Dr. Newby, heparin drip in D5 stopped, and T2DM (max 45 g CHO per meal) ordered * Will switch back to NPH. However, will order reduced dose x1 at dinner today as effects of Levemir in AM will persist until tomorrow AM, and then resume previous parameters tomorrow. * OK to decrease overnight checks from two to one PLAN FOR INPATIENT GLYCEMIC CONTROL: Hold outpatient oral diabetes medication (metformin) Basal insulin * Changed to Levemir 10 units SC x1 this AM for NPO status * Revert back to NPH (but at lower dose x1) 8 units with dinner tonight (2nd persistence of effect overnight of Levemir this AM) * Resume previous parameters of NPH 15 units SC BIDM (with reduction to 10 units for BSG less than 100 mg/dL), starting tomorrow AM Bolus insulin - loosen correction factor, increase goal range, add 1 overnight check * NovoLog @ breakfast * Goal Range: Low 120 mg/dL - High 150 mg/dL * Correction Factor: 25 mg/dL/unit * Nutritional / Prandial insulin per carb ratio of 1 unit per 5 grams CHO consumed * NovoLog @ lunch, dinner, HS, 0200 * Goal Range: Low 120 mg/dL - High 150 mg/dL * Correction Factor: 30 mg/dL/unit * Nutritional / Prandial insulin per carb ratio of 1 unit per 6 grams CHO consumed
[2019-01-21] MEDS: HEPARIN SODIUM/DEXTROSE 25,000 UNITS/500 ML BAG IV SCH (11:13)
[2019-01-21 12:54] LABS: Appearance Urine Clear (Clear); Bacteria Urine Automated Negative (Negative); Bilirubin Urine Negative (Negative); Blood Urine 3+ (Negative); Cast Urine Automated 0 /lpf (0-5); Color Urine Yellow; Epithelial Cell Urine Auto 0-5 /lpf (0-5); Glucose Urine UA Negative (Negative); Ketones Urine Negative (Negative); Leukocyte Esterase Urine Negative (Negative); Nitrite Urine Negative (Negative); Protein Urine Negative (Negative); RBC Urine Automated >30 /hpf (0-4); Specific Gravity Urine 1.009 (1.000-1.030); Urobilinogen Urine Negative (Negative); pH Urine 6.5 (4.5-7.5)
--- NOTE | 2019-01-21 14:00 | Consultation ---
Date of Consultation January 21, 2019 Assessment & Plan (1) Atherosclerotic peripheral vascular disease of extremity: This patient does not have any definite complaints of claudication. He definitely does not have any rest pain in his lower extremities. There is no evidence of significant ischemia in the lower extremities. At this point time I would treat his cellulitis and edema with elevation antibiotics as is being done. We will see him in the office after discharge for follow-up for his vascular disease. There is no need for any heparinization at this time. History of Present Illness Reason for Consultation: Cellulitis right lower extremity Attending Physician: Idris Paulino MD History of Present Illness This is a 83-year-old gentleman who was admitted with right leg swelling and cellulitis. His claims that he had a fall and hurt his ankle and subsequent to that developed swelling in the right lower extremity along with redness and tenderness of the foot and right lower extremity. At the time of admission he had a arterial venous study. The arterial study shows suggestion of superficial femoral proximal popliteal stenoses. Due to the discomfort and edema in the right leg indices cannot be done. He does claim that his leg occasionally hurts when he walks with this mostly started at the time of his fall and subsequently edema and cellulitis. His says they walked far distances in the past but now is not able to walk any long distance mostLY due to instability. He does occasionally get calf pains but not as always associated with walking. His denies him having any ulcerations of the lower extremity. He does not have any complaints of rest pain. Allergies Allergy/AdvReac Type Severity Reaction Status Date / Time atorvastatin [From Lipitor] AdvReac Intermediate muscle pain Verified 01/16/19 1 6:24 insulin glargine AdvReac Intermediate Weakness - Verified 01/21/19 10:55 [From Lantus U-100 Insulin] see comments rosuvastatin AdvReac Intermediate muscle pain Verified 01/16/19 16:24 simvastatin AdvReac Intermediate muscle pain Verified 01/16/19 16:24 lisinopril AdvReac Unknown . Verified 01/21/19 10:55 Home Medications Home Medications Medication Instructions Recorded Confirmed Type amoxicillin 2,000 mg PO DAILY PRN 01/16/19 01/16/19 History aspirin [Aspir-81] 81 mg PO DAILY 01/16/19 01/16/19 History brimonidine 1 drp OPHTHALMIC (EYE) BID 01/16/19 01/16/19 History cyanocobalamin (vitamin B-12) 1,000 mcg SUBLINGUAL DAILY 01/16/19 01/16/19 History diclofenac sodium 4 g TOPICAL QID 01/16/19 01/16/19 History dorzolamide-timolol (PF) [Cosopt 1 drp OPHTHALMIC (EYE) BID 01/16/19 01/16/19 History (PF)] ezetimibe 10 mg PO DAILY 01/16/19 01/16/19 History finasteride 5 mg PO DAILY 01/16/19 01/16/19 History hydrochlorothiazide 25 mg PO 3XWK 01/16/19 01/16/19 History insulin asp prt-insulin aspart 20 unit SUBCUT BID 01/16/19 01/16/19 History [Novolog Mix 70-30FlexPen U-100] latanoprost 1 drp OPHTHALMIC (EYE) PM 01/16/19 01/16/19 History levothyroxine 75 mcg PO DAILY 01/16/19 01/16/19 History losartan 50 mg PO DAILY 01/16/19 01/16/19 History metformin 1,000 mg PO BIDM 01/16/19 01/16/19 History metoprolol tartrate 50 mg PO BID 01/16/19 01/16/19 History tamsulosin 0.4 mg PO DAILY 01/16/19 01/16/19 History vit C-E-zinc caw-dqiaqk-gmvtwn 1 tab PO BID 01/16/19 01/16/19 History [[facility]] Patient History Medical History BPH (benign prostatic hyperplasia) CAD (coronary artery disease) Diabetic proliferative retinopathy Glaucoma HLD (hyperlipidemia) HTN (hypertension) Hypothyroidism Statin intolerance T2DM (type 2 diabetes mellitus) Surgical History History of cataract extraction History of coronary artery bypass graft x 3 PTCA R Coronary 1992 MORALES 2002 to LAD, SVG -1st diag, obtuse and posterior descending Family History Father , 71 Stroke Diabetes Mother , 79 Dementia Brother Coronary heart disease Diabetes CHF (congestive heart failure) Social History Preferred Language: Jamaican Communication Ability: Effective Beliefs That Will Affect Care: Confucianist Confucianist Beliefs: Protestant marital status: Current Living Situation: Spouse Other Information That Helps Us Care for You: No Feels Safe at Home: Yes Smoking Status: Never smoker Hx Alcohol Use: Yes Alcohol type: beer Alcohol Intake Frequency: Rarely Hx Substance Use: No Review of Systems Review of Systems: All systems reviewed & are unremarkable except as noted in HPI & below Physical Exam Constitutional: WD/WN, vitals as above Cardiovascular: Rate/Rhythm: regular rate and regular rhythm Vessels: femoral pulses present (Bilaterally equal and +2), posterior tibial pulses present (Cluster on the left cannot palpated on the right) and dorsalis pedis pulses present (+1 on the left cannot palpate on the right.) Extremities: normal capillary refill and + edema (Right lower extremity) Gastrointestinal (Abdomen): Inspection/Auscultation: abdomen normal to inspection; no visible pulsation Percussion/Palpation: no pulsatile mass Skin: no rashes, warm and dry Psychiatric: Orientation: alert and oriented x 3 Results & Data Vital Signs (Past 12 Hours) Vital Signs Temp Pulse Pulse Resp BP Pulse Ox 01/21/19 11:56 36.4 C L 66 18 147/75 H 94 01/21/19 08:00 65 01/21/19 07:23 36.9 C 76 18 157/75 H 97 01/21/19 03:55 36.8 C 73 18 143/76 H 93
--- NOTE | 2019-01-21 14:50 | Neurology Progress Note ---
Date of Service January 21, 2019 Assessment & Plan (1) Gait abnormality: 1. PT/OT for further evaluation- walking with a walker today- RLE pain - heel but tandem gait 2. MRI - no acute findings 3. family input for gait issues- appear to have LE cellulitis and pain in heel on right- discussed with and patient he does not want inpatient therapy but agrees to home PT 4. cardiology following for CHF 5. TEDS may be helpful for LE edema 6. primary team for further medical management 7. after foot pain has resolve will evaluate in our office for any further recommendations 8. need to use walker with ambulation neurology follow up 4-6 weeks Berna Padilla PAC schedule Supervising Physician Co-Signing Physician Notes I have seen and discussed above patient with Dr Berna Paniagua, neurology Patient seen and discussed with Berna Padilla. Ambulated patient today. There is no facial masking or resting tremor. Ambulation with a walker is reasonable at the right lower extremity is mildly externally rotated of course this is his antalgic leg and foot. There is some minor tendency to favor that leg and to do some minor pivoting on that leg but no actual freezing. His gait is not bradykinetic. Is not shuffling. Romberg is negative. Impression gait dysfunction possibly related to diabetic neuropathy. speaks of what sounds like freezing. Theoretically patient could have lower half parkinsonism although I see no convincing evidence of that plan obtain a carotid ultrasound due to the patient's 's complaint that the right leg stops I think this is unlikely carotid disease. Will reassess him as the infection is right lower extremity clears up so that we can see a best representation of gait again he does not have Parkinson's disease does not have NPH radiographically or clini dianne and does not appear to have a lower half parkinsonism. Please schedule follow-up with us post discharge Subjective Yg is a 83 year old male with PMH- CAD history of CABG x 3 in 2002, DM2, HTN, HLD, hypothyroidism, BPH, glaucoma, diabetic retinopathy, statin intolerance presents to [facility] as a direct admission from cardiology clinic due to decompensated CHF. Over the past 1.5 weeks he has noticed increase in lower extremity swelling, right greater than left, shortness of breath with exertion, 2-3 pillow orthopnea, minimal dry cough. He admits to chronic left lower extremity swelling ever since CABG, but now his R LE is swollen and erythema. His family was concerned he was having RLE weakness but he states there is no weakness he has pain and states his foot and ankle on the R are swollen. Hewas up and walking with PT again today his states he did well. His foot is still bothering him but Dr Newby looked at it and no surgery at this time. He was not using a walker at home prior to this admission but he state his will start using it at home. They are requesting home PT he does not want to go to inpatient therapy. denies CP, SOB, abdominal pain, one sided weakness, numbness tingling, N,V, new bowel or bladder symptoms. Physical Exam Physical Exam: Gen: alert NAD lungs course breath sounds CV RRR hand certified professional controller bicep tricep 5/5 hip flex 5/5 right LE foot edema erythema on top of foot and above ankle unable to palpate pulses warm tender to touch Results & Data Vital Signs (Past 12 Hours) Vital Signs Temp Pulse Pulse Resp BP Pulse Ox 01/21/19 11:56 36.4 C L 66 18 147/75 H 94 01/21/19 08:00 65 01/21/19 07:23 36.9 C 76 18 157/75 H 97 01/21/19 03:55 36.8 C 73 18 143/76 H 93 Laboratory Results Abnormal lab results 01/18/19 01/18/19 01/20/19 Range/Units 02:30 05:24 16:47 RBC (4.7-6.1) M/uL Hgb (14.0-18.0) g/dL Hct (42-52) % Lymph # (Auto) (1.2-3.4) K/uL Faulk # (Auto) (0.11-0.59) K/uL APTT (21.0-31.0) Seconds Chloride (98-107) mmol/L BUN (7-18) mg/dl BUN/Creatinine Ratio (10-20) Glucose (70-99) mg/dl POC Glucose 159 H (70-99) Total Protein (PEP) 5.5 L (6.2-8.3) G/DL Albumin (PEP) 2.9 L (3.8-4.8) G/DL Hyhfq-1-Vcgwzfujs 0.5 H (0.2-0.3) G/DL Znzm-2-Clxubreh 0.3 L (0.4-0.6) G/DL Gamma Globulins 0.7 L (0.8-1.7) G/DL Urine Blood (Negative) Urine RBC (Auto) (0-4) /hpf U Random Total Protein 28 H (5-25) MG/DL Protein/Creatinin Ratio 298 H (22-128) 01/20/19 01/20/19 01/21/19 Range/Units 19:21 20:19 01:56 RBC 4.20 L (4.7-6.1) M/uL Hgb 13.0 L (14.0-18.0) g/dL Hct 38.8 L (42-52) % Lymph # (Auto) 0.99 L (1.2-3.4) K/uL Faulk # (Auto) 0.96 H (0.11-0.59) K/uL APTT (21.0-31.0) Seconds Chloride 108 H (98-107) mmol/L BUN 28 H (7-18) mg/dl BUN/Creatinine Ratio 23.9 H (10-20) Glucose 111 H (70-99) mg/dl POC Glucose 168 H (70-99) Total Protein (PEP) (6.2-8.3) G/DL Albumin (PEP) (3.8-4.8) G/DL Ooeto-8-Ebjceszjv (0.2-0.3) G/DL Bwog-5-Vekaekll (0.4-0.6) G/DL Gamma Globulins (0.8-1.7) G/DL Urine Blood (Negative) Urine RBC (Auto) (0-4) /hpf U Random Total Protein (5-25) MG/DL Protein/Creatinin Ratio (22-128) 01/21/19 01/21/19 01/21/19 Range/Units 01:56 01:56 07:49 RBC 4.03 L (4.7-6.1) M/uL Hgb 12.4 L (14.0-18.0) g/dL Hct 36.6 L (42-52) % Lymph # (Auto) (1.2-3.4) K/uL Faulk # (Auto) (0.11-0.59) K/uL APTT 47.9 H* (21.0-31.0) Seconds Chloride (98-107) mmol/L BUN (7-18) mg/dl BUN/Creatinine Ratio (10-20) Glucose (70-99) mg/dl POC Glucose 149 H (70-99) Total Protein (PEP) (6.2-8.3) G/DL Albumin (PEP) (3.8-4.8) G/DL Fcvsu-0-Toxpjfsgd (0.2-0.3) G/DL Pixh-9-Txrlpuqv (0.4-0.6) G/DL Gamma Globulins (0.8-1.7) G/DL Urine Blood (Negative) Urine RBC (Auto) (0-4) /hpf U Random Total Protein (5-25) MG/DL Protein/Creatinin Ratio (22-128) 01/21/19 01/21/19 Range/Units 11:08 12:30 RBC (4.7-6.1) M/uL Hgb (14.0-18.0) g/dL Hct (42-52) % Lymph # (Auto) (1.2-3.4) K/uL Faulk # (Auto) (0.11-0.59) K/uL APTT (21.0-31.0) Seconds Chloride (98-107) mmol/L BUN (7-18) mg/dl BUN/Creatinine Ratio (10-20) Glucose (70-99) mg/dl POC Glucose 197 H (70-99) Total Protein (PEP) (6.2-8.3) G/DL Albumin (PEP) (3.8-4.8) G/DL Aplql-1-Xzzlyusge (0.2-0.3) G/DL Gkwx-2-Qutwkdkm (0.4-0.6) G/DL Gamma Globulins (0.8-1.7) G/DL Urine Blood 3+ H (Negative) Urine RBC (Auto) >30 H (0-4) /hpf U Random Total Protein (5-25) MG/DL Protein/Creatinin Ratio (22-128) Diagnostic Findings no new imaging
--- NOTE | 2019-01-21 14:55 | Cardiology Progress Note ---
Date of Service January 21, 2019 Assessment & Plan (1) Acute decompensated heart failure: Patient seen with subacute onset of worsening dyspnea lower extremity edema, abdominal bloating in the outpatient setting examination consistent with decompensated congestive heart failure Clinically improved, IV diuretics switched to oral hemodynamically stable. We will continue all current therapies, discontinue potassium supplement while on spinal Vascular surgery evaluation of right foot pending with obstructive vascular disease noted on right arterial do (2) CAD (coronary artery disease): (3) HTN (hypertension): Better controlled (4) T2DM (type 2 diabetes mellitus): (5) HLD (hyperlipidemia): (6) Statin intolerance: (7) History of coronary artery bypass graft x 3: Subjective Patient seen and examined, chart, medications, telemetry reviewed. Respiratory and volume status appears improved since admission no further dyspnea. Overt signs of congestive heart failure have clinically improved though still has tenderness erythema in his right foot. Physical Exam Constitutional: WD/WN, vitals as above Eyes: PERRL, conjunctivae normal, anicteric sclerae ENMT: external ear and nose normal, oropharynx normal Neck: trachea midline, no thyromegaly Respiratory: normal respiratory effort, lungs clear to auscultation Cardiovascular: Rate/Rhythm: regular rate and regular rhythm Heart Sounds: normal S1, normal S2 and + murmur (Grade 1/6); no gallop Palpation: normal PMI Vessels: normal carotid upstroke and radial pulses present; no JVD and no carotid bruit Extremities: no edema Gastrointestinal (Abdomen): normal bowel sounds, soft, nontender, no hepatosplenomegaly Musculoskeletal: no cyanosis or clubbing, extremities motor strength 5/5 Skin: no rashes, warm and dry Neurologic: PERRL, EOMI, accommodation nl, no face palsy, no dysarthria Psychiatric: A+Ox3, euthymic affect Results & Data Vital Signs (Past 12 Hours) Vital Signs Temp Pulse Pulse Resp BP Pulse Ox 01/21/19 11:56 36.4 C L 66 18 147/75 H 94 01/21/19 08:00 65 01/21/19 07:23 36.9 C 76 18 157/75 H 97 01/21/19 03:55 36.8 C 73 18 143/76 H 93
[2019-01-21] MEDS ORDERED: INSULIN ASPART 100 UNITS/ML 3 ML PEN SC SCH (16:30)
[2019-01-21] MEDS ORDERED: INSULIN HUMAN NPH SC ONE (17:00)
[2019-01-21] MEDS: INSULIN ASPART SCH ×2 (17:21→21:22)
--- NOTE | 2019-01-21 20:52 | Hospitalist Progress Note ---
Date of Service January 21, 2019 Assessment & Plan (1) CHF (congestive heart failure): Presented with worsening dyspnea and dependent edema. Chest x-ray showed cardiomegaly and pulmonary vascular congestion. proBNP was elevated. Cardiology consulted. Echocardiogram demonstrated LVEF of 45-50%, grade 2 diastolic dysfunction. 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 Received IV diuretics with improvement. Continue furosemide, spironolactone, metoprolol succinate, losartan. (2) Coronary artery disease: No anginal symptoms. Continue aspirin, metoprolol, lipid management. (3) Atherosclerotic peripheral vascular disease of extremity: Arterial duplex of right lower extremity demonstrated stenosis in the distal right superficial femoral artery. Vascular Surgery consulted. No need for intervention at this time. Continue aspirin, lipid management, etc. (4) Diabetes mellitus type 2 with complications: Diabetes mellitus type 2, usually managed with metformin and NovoLog mix 7030. Hemoglobin 8.4 on 01/17/2019. Hold metformin during hospital stay. Pharmacy consulted for glycemic management. Receiving basal/bolus insulin per protocol. Fasting blood sugar today = 149. (5) Hypertension: Continue metoprolol succinate and losartan. (6) Dyslipidemia: LDL-c = 92. Intolerant of multiple statins. Continue ezetimibe. (7) Hypothyroidism: TSH 1.82. Continue levothyroxine. (8) Cellulitis: Cellulitis right lower extremity and dorsum of right foot. attributes cellulitis to abrasions from crawling on rug after fall. Improving. Continue cephalexin. (9) Gait abnormality: Shuffling gait and frequent falls. Seen in consultation by Neurology. MRI showed age-related atrophy, no acute findings. [place] not to have Parkinson's disease. Gait dysfunction possibly secondary to diabetic neuropathy. PT/OT. Ambulation with walker. (10) DVT prophylaxis: Initially received subcutaneous enoxaparin, but started on IV heparin because of peripheral vascular disease with significant stenosis. IV heparin is being discontinued because of gross hematuria. No other anticoagulants at this time because of the hematuria. SCDs ordered, but limited to left lower extremity due to peripheral vascular disease noted in the right lower extremity. Ambulate as able. (11) Discharge planning issues: Anticipated discharge to home. Family Medicine follow-up with Dr. Boyer. Cardiology follow-up with [facility]. Neurology follow-up with [facility]. Vascular Surgery follow-up with Dr. Newby. Subjective Recheck for multiple problems. Patient seen in their room around 1130. visiting. Overall, doing better. Dyspnea resolved. No chest pain. On IV heparin for peripheral vascular disease. Noted to have some blood-tinged urine via Ma this morning. Right foot / leg feel better. Review of Systems: Constitutional- no fever. Cardiac- as noted above. Pulmonary- no cough or SOB. GI- no nausea, vomiting, diarrhea, melena, hematochezia. - as noted above. Otherwise, as noted above. Physical Exam Constitutional: no acute distress Eyes: + anicteric sclerae Respiratory: no respiratory distress Auscultation: lungs clear to auscultation bilaterally Cardiovascular: Rate/Rhythm: regular rate and regular rhythm Heart Sounds: + murmur (I/ sys murmur at base); no gallop and no cardiac rub Vessels: no JVD and + abnormal peripheral pulses (pedal pulses diminished) Extremities: normal capillary refill (bilat toes < 2 sec) and + edema (1+ RLE below knee); no calf tenderness Gastrointestinal (Abdomen): normal bowel sounds, soft, nontender, no hepatosplenomegaly Skin: + erythema (right pretibial & dorsum right foot) Psychiatric: Orientation: alert and oriented x 3 Results & Data Vital Signs (Past 12 Hours) Vital Signs Temp Pulse Pulse Resp BP BP Pulse Ox 01/21/19 20:13 36.9 C 79 18 155/74 H 96 01/21/19 16:00 79 01/21/19 15:08 36.5 C 77 19 110/64 96 01/21/19 11:56 36.4 C L 66 18 147/75 H 94 Laboratory Results 01/21/19 01:56 01/21/19 01:56
[2019-01-21] MEDS: LATANOPROST 0.005% OP SOLN 2.5 ML BTL OP SCH (21:24)
--- NOTE | 2019-01-21 21:24 | Ultrasound Report ---
US carotid doppler BI CLINICAL HISTORY: 83 years-old Male with recurrent inability to move rle. Acute strokelike symptoms COMPARISON: Head CT 01/16/2019 TECHNIQUE: Multiple real time sonographic images of the carotid bifurcations were obtained assessing lilly scale, color Doppler and spectral wave form appearance FINDINGS: RIGHT CAROTID: The peak systolic velocity within the right ICA [id number] cm/sec. The end diastoli c velocity measured 12.3 cm/sec. The ICA to CCA ratio measured 1.28 which correlates with a stenosis of 0-50%. Extensive mostly calcified plaque of the right carotid bulb and proximal right ICA. LEFT CAROTID: The peak systolic velocity within the left ICA [id number] cm/sec. The end diastolic velocity measured 15.5 cm/sec. The ICA to CCA ratio measured 1.35 which correlates with a stenosis of 0-50%. Extensive mostly calcified plaque of the left carotid bulb and proximal left ICA. There is normal antegrade vertebral flow bilaterally. Blood pressure on the right measures 159/75 and on the left was measured at 150/64 IMPRESSION: 1. Extensive calcified plaque of the bilateral carotid bulbs and proximal internal carotid arteries without hemodynamically significant stenosis. 2. Normal antegrade vertebral flow bilaterally. The above report was generated using voice recognition software. It may contain grammatical, syntax o r spelling errors. Electronically signed by: Gregg Vega M.D. 01/21/2019 9:23 PM
[2019-01-22] MEDS ORDERED: INSULIN ASPART 100 UNITS/ML 3 ML PEN SC SCH
[2019-01-22] MEDS ORDERED: INSULIN ASPART 100 UNITS/ML 3 ML PEN SC ONE (02:00)
[2019-01-22] MEDS: LEVOTHYROXINE SODIUM 75 MCG TABLET PO SCH (05:50)
--- NOTE | 2019-01-22 07:09 | XRay Report ---
XR chest 1V portable CLINICAL HISTORY: CHF COMPARISON STUDY: 01/16/2019 FINDINGS: The heart is the upper limits of normal in size. There are postsurgical changes of a midlin e sternotomy. There has been resolution of the previously described congestive failure. There is no f ocal pulmonary consolidation. Trace residual lamellar pleural effusions are suspected[ IMPRESSION: 1. Resolution of the previously described congestive failure 2. Trace pleural effusions 3. No evidence of focal pulmonary consolidation Electronically signed by: Jorge Luis Everett M.D. 01/22/2019 7:08 AM
[2019-01-22 07:28] LABS: BUN Creatinine Ratio 27.2 (10-20); Creatinine Clr Calc Pharmacy 52.1 ml/min; Est GFR (African American) 71.9; Potassium 4.7 mmol/L (3.5-5.1)
[2019-01-22] MEDS: INSULIN ASPART SCH ×2 (07:46→12:13)
[2019-01-22] MEDS: INSULIN ASPART 100 UNITS/ML 3 ML PEN SC SCH ×2 (07:46→12:12)
[2019-01-22] MEDS ORDERED: INSULIN HUMAN NPH SC SCH (08:00)
[2019-01-22] MEDS: SPIRONOLACTONE 25 MG TAB PO SCH (08:26)
[2019-01-22] MEDS: ASPIRIN 81 MG ECTAB PO SCH (08:27)
[2019-01-22] MEDS: TAMSULOSIN HCL 0.4 MG CAP PO SCH (08:27)
[2019-01-22] MEDS: LOSARTAN POTASSIUM 50 MG TAB PO SCH (08:27)
[2019-01-22] MEDS: cephALEXin 250 MG CAP PO SCH ×2 (08:27→12:14)
[2019-01-22] MEDS: FUROSEMIDE 40 MG TAB PO SCH (08:28)
[2019-01-22] MEDS: FINASTERIDE 5 MG TAB PO SCH (08:28)
[2019-01-22] MEDS: CEROVITE ADV FORMULA TAB PO SCH (08:28)
[2019-01-22] MEDS: CYANOCOBALAMIN 500 MCG TABLET (VITAMIN B-12) PO SCH (08:29)
[2019-01-22] MEDS: METOPROLOL SUCC 25MG EXT REL TAB PO SCH (08:29)
[2019-01-22] MEDS: EZETIMIBE 10 MG TABLET PO SCH (08:29)
[2019-01-22] MEDS: DORZOLAMIDE/TIMOLOL 22.3/6.8MG/ML 10 ML BTL OP SCH (08:30)
[2019-01-22] MEDS: SACCHAROMYCES BOULARDII 250 MG CAP PO SCH (08:30)
[2019-01-22] MEDS: BRIMONIDINE TARTRATE 0.2% 5ML OP SCH (08:31)
[2019-01-22] MEDS: ACETAMINOPHEN 325 MG TAB PO PRN (09:10)
--- NOTE | 2019-01-22 11:44 | Hospitalist Progress Note ---
Date of Service January 22, 2019 Assessment & Plan (1) CHF (congestive heart failure): Presented with worsening dyspnea and dependent edema. Chest x-ray showed cardiomegaly and pulmonary vascular congestion. proBNP was elevated. Cardiology consulted. Echocardiogram demonstrated LVEF of 45-50%, grade 2 diastolic dysfunction. 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 Received IV diuretics with improvement. Continue furosemide, spironolactone, metoprolol succinate, losartan. (2) Coronary artery disease: No anginal symptoms. Continue aspirin, metoprolol, lipid management. (3) Atherosclerotic peripheral vascular disease of extremity: Arterial duplex of right lower extremity demonstrated stenosis in the distal right superficial femoral artery. Vascular Surgery consulted. No need for intervention at this time. Continue aspirin, lipid management, etc. (4) Carotid artery disease: Carotid duplex showed extensive plaque, but no hemodynamically significant stenoses. Continue aspirin, lipid management, risk facto modification. Follow. (5) Diabetes mellitus type 2 with complications: Diabetes mellitus type 2, usually managed with metformin and NovoLog mix 7030. Hemoglobin 8.4 on 01/17/2019. Hold metformin during hospital stay. Pharmacy consulted for glycemic management. Receiving basal/bolus insulin per protocol. Fasting blood sugar today = 269. Discharge on usual outpatient regimen with close follow-up. (6) Hypertension: Continue metoprolol succinate and losartan. (7) Dyslipidemia: LDL-c = 92. Intolerant of multiple statins. Continue ezetimibe. (8) Hypothyroidism: TSH 1.82. Continue levothyroxine. (9) Cellulitis: Cellulitis right lower extremity and dorsum of right foot. attributes cellulitis to abrasions from crawling on rug after fall. Improving. Discharge on cephalexin to complete course of treatment. (10) Gait abnormality: Shuffling gait and frequent falls. Seen in consultation by Neurology. MRI showed age-related atrophy, no acute findings. [place] not to have Parkinson's disease. Gait dysfunction possibly secondary to diabetic neuropathy. PT/OT. Ambulation with walker. (11) Hematuria: Developed gross hematuria via Ma cath while receiving IV heparin. Ma cath removed. Heparin discontinued. UA showed RBC's, but no apparent infection. Recheck UA in clinic and pursue further evaluation if hematuria persists. (12) DVT prophylaxis: Initially received subcutaneous enoxaparin, but started on IV heparin because of peripheral vascular disease with significant stenosis. No other anticoagulants at this time because of the hematuria. SCDs ordered, but limited to left lower extremity due to peripheral vascular disease noted in the right lower extremity. Ambulate as able. (13) Discharge planning issues: Discharge to home. Family Medicine follow-up with Dr. Boyer. Cardiology follow[facility]. Neurology follow-up with [facility]. Vascular Surgery follow-up with Dr. Newby. Subjective Recheck for multiple problems. Patient seen in their room around 1120. visiting. Doing well. Anxious to go home. Dyspnea resolved. No chest pain. Right foot / leg feel better. Review of Systems: Constitutional- no fever. Cardiac- as noted above. Pulmonary- no cough or SOB. GI- no nausea, vomiting, diarrhea, melena, hematochezia. - as noted above. Otherwise, as noted above. Physical Exam Constitutional: no acute distress Eyes: + anicteric sclerae Respiratory: no respiratory distress Auscultation: lungs clear to auscultation bilaterally Cardiovascular: Rate/Rhythm: regular rate and regular rhythm Heart Sounds: + murmur (I/ sys murmur at base); no gallop and no cardiac rub Vessels: no JVD and + abnormal peripheral pulses (pedal pulses diminished) Extremities: normal capillary refill (bilat toes < 2 sec) and + edema (1+ RLE below knee); no calf tenderness Gastrointestinal (Abdomen): normal bowel sounds, soft, nontender, no hepatosplenomegaly Skin: + erythema (right pretibial & dorsum right foot, improving) Psychiatric: Orientation: alert and oriented x 3 Results & Data Vital Signs (Past 12 Hours) Vital Signs Temp Pulse Pulse Resp BP BP Pulse Ox 01/22/19 08:02 36.7 C 84 18 115/69 01/22/19 06:45 76 01/22/19 03:25 36.6 C 78 18 111/53 L 95 01/21/19 23:45 36.7 C 69 18 132/72 97
[2019-01-22 12:36] LABS: Beta-Hydroxybutyrate 1.15 mg/dl (0.2-2.81)
--- NOTE | 2019-01-22 14:43 | Cardiology Progress Note ---
Date of Service January 22, 2019 Assessment & Plan (1) Acute decompensated heart failure: Patient seen with subacute onset of worsening dyspnea lower extremity edema, abdominal bloating in the outpatient setting examination consistent with decompensated congestive heart failure Patient placed on optimal medical regimen and clinically improved on medications Increased metoprolol succinate, furosemide and spironolactone, losartan Patient stable for discharge on current medical regimen plan follow-up cardiology 1 to 2 weeks time (2) CAD (coronary artery disease): (3) HTN (hypertension): Better controlled (4) T2DM (type 2 diabetes mellitus): (5) HLD (hyperlipidemia): (6) Statin intolerance: (7) History of coronary artery bypass graft x 3: Subjective Patient seen and examined, chart, medications, telemetry reviewed. Respiratory and volume status appears improved since admission no further dyspnea. Patient hemodynamically improved with good blood pressure control. No complaints this morning right foot tenderness improved Physical Exam Constitutional: WD/WN, vitals as above Eyes: PERRL, conjunctivae normal, anicteric sclerae ENMT: external ear and nose normal, oropharynx normal Neck: trachea midline, no thyromegaly Respiratory: normal respiratory effort, lungs clear to auscultation Cardiovascular: Rate/Rhythm: regular rate and regular rhythm Heart Sounds: normal S1, normal S2 and + murmur (Grade 1/6); no gallop Palpation: normal PMI Vessels: normal carotid upstroke and radial pulses present; no JVD and no carotid bruit Extremities: no edema Gastrointestinal (Abdomen): normal bowel sounds, soft, nontender, no hepatosplenomegaly Musculoskeletal: no cyanosis or clubbing, extremities motor strength 5/5 Skin: no rashes, warm and dry Neurologic: PERRL, EOMI, accommodation nl, no face palsy, no dysarthria Psychiatric: A+Ox3, euthymic affect Results & Data Vital Signs (Past 12 Hours) Vital Signs Temp Pulse Pulse Pulse Resp BP BP 01/22/19 13:54 36.9 C 72 88 18 111/53 L 121/63 01/22/19 11:56 36.9 C 72 18 121/63 01/22/19 08:02 36.7 C 84 18 115/69 01/22/19 06:45 76 01/22/19 03:25 36.6 C 78 18 111/53 L Pulse Ox 01/22/19 13:54 97 01/22/19 11:56 97 01/22/19 08:02 01/22/19 06:45 01/22/19 03:25 95 Laboratory Results Laboratory Results - last 24 hr 01/21/19 01/21/19 01/22/19 16:17 21:00 01:22 Sodium Potassium Chloride Carbon Dioxide Anion Gap BUN Creatinine Est Cr Clr Drug Dosing Est GFR ( Amer) Est GFR (Non-Af Amer) BUN/Creatinine Ratio Glucose POC Glucose 301 H* 277 H 74 Calcium Beta-Hydroxybutyric Acd 01/22/19 01/22/19 01/22/19 06:08 07:18 11:34 Sodium 137 Potassium 4.7 Chloride 105 Carbon Dioxide 24 Anion Gap 8.0 BUN 30 H Creatinine 1.09 Est Cr Clr Drug Dosing 52.1 Est GFR ( Amer) 71.9 Est GFR (Non-Af Amer) 62.0 BUN/Creatinine Ratio 27.2 H Glucose 261 H POC Glucose 269 H 383 H* Calcium 9.0 Beta-Hydroxybutyric Acd 01/22/19 01/22/19 11:35 11:42 Sodium Potassium Chloride Carbon Dioxide Anion Gap BUN Creatinine Est Cr Clr Drug Dosing Est GFR ( Amer) Est GFR (Non-Af Amer) BUN/Creatinine Ratio Glucose 345 H* POC Glucose 369 H* Calcium Beta-Hydroxybutyric Acd 1.15
--- NOTE | 2019-01-22 14:47 | Pharmacy Report ---
Pharmacy Glycemic Short Note 2 - Date of Service January 22, 2019 - Glycemic Short BSG Results (Last 24 hours): 01/21/19 01/21/19 01/22/19 16:17 21:00 01:22 Glucose POC Glucose 301 H* 277 H 74 01/22/19 01/22/19 01/22/19 06:08 07:18 11:34 Glucose 261 H POC Glucose 269 H 383 H* 01/22/19 01/22/19 11:35 11:42 Glucose 345 H* POC Glucose 369 H* OUTPATIENT ANTIDIABETIC REGIMEN: * Metformin 1 g po BIDM * Novolog mix 70/30, 20 units SC BIDM Patient is currently receiving: Basal insulin: NPH SQ BID * 10 units for BSG less than 110 mg/dL * 15 units for BSG 110 mg/dL or greater Bolus insulin * NovoLog @ breakfast * Goal Range: Low 110 mg/dL - High 140 mg/dL * Correction Factor: 20 mg/dL/unit * Nutritional / Prandial insulin per carb ratio of 1 unit per 5 grams CHO c onsumed * NovoLog @ lunch, dinner, HS * Goal Range: Low 110 mg/dL - High 140 mg/dL * Correction Factor: 25 mg/dL/unit * Nutritional / Prandial insulin per carb ratio of 1 unit per 6 grams CHO consumed ASSESSMENT: 01/22 * Patient to be discharged today. Blood sugar overnight was 74, morning BSG 261- patient reports he had no other snacks other than when BSG was 74. Patient received 15 units of insulin per ordered parameters. Lunch BSG was up to 369 (345 on lab). Did discuss this high blood sugar with patient and . Tightened parameters back to a correction factor of 20 and carb ratio of 6. This provided the patient with 17 units of insulin. Discussed this dose with patient and his , and we reviewed previous BSG data/dosing. They are agreeable with this dose. Per she thought be was receiving NPH with each meal as well instead of just breakfast and dinner. * Patient does seem to spike with lunch- increasing AM NPH dose may help with this. * Discussed with patient/ and he plans on having better diet control outpatient. Encouraged follow-up with provider taking care of diabetes regimen to adjust accordingly. 01/21 * 83 yo M with decently controlled T2DM as outpatient * Changes to stressors * Heparin drip mixed in D5 started yesterday evening * NPO for possible surgery today - basal insulin of NPH is not appropriate for NPO status therefore initially switched to Lantus * Was notified by RN (Tootie) that patient/ (Marcella) refused Lantus and refused 1 unit of Novolog correctional insulin for BSG this AM. Spoke w Marcella for ~30 minutes again today. * Per Marcella, a "long time ago", patient was transitioned to Lantus for basal insulin 2nd sub-optimal control on previous basal insulin. Before initiation of Lantus, he could walk on his own w/o aid. Two days after starting Lantus, he needed a cane. One week after starting Lantus, he could not transfer on his own or get up out of a chair. Two of his sons had to support him/carry him for him to move. They saw PCP, then rubber mill tender, then neurologist, then orthopedic doctor for this weakness. Orthopedic doctor then said he has had all this work up, no one found anything, and suggested he stop Lantus and switch back to previous basal insulin. PCP switched back to previous basal insulin, and within one week, patient was again walking independently, without a cane. * Marcella at one point noted she would prefer no insulin at all to Lantus, stating she would sign something to that effect. * We then extensively discussed risk/benefit of NPH vs. Levemir vs. Lantus as it relates to hypoglycemic risk while NPO, implications for post-op healing and infection prevention, and risk for possible ADR based on reaction history. * Compromised with *SHORT TERM* Levemir around surgery. (Marcella) and patient strongly prefer NPH - will again use this as basal insulin if/when possible. * I will add two overnight checks as this is a low dose of Levemir for NPO status in a CHO-sensitive patient and he may require additional Novolog overnight to help keep AM fasting BSG in goal range * (Marcella) noted she would prefer goal range to be 120-150 mg/dL instead of my stated preferred post-op range of 110-140 mg/dL, stating he "just doesn't feel well" with BSG's around 110 mg/dL. I did state that goal range of 110-140 mg/dL would still be my recommendation, but considering her compromise with Lantus vs. Levemir vs. NPH I noted I would adjust the range per her request. It seems likely that not doing so would increase the risk that Novolog is refused all together, which would potentially negatively impact post-op care. Marcella expressed satisfaction with this change in goal range. * Will loosen correction factor as it seems that while the patient does require a tight carb ratio, his correctional needs are less than what would be anticipated from his sensitivity to CHO * Marcella also expressed concern that post-op meal tray would again be a "house" tray that was provided with breakfast on 01/19 which caused significant BSG spike to almost 400 mg/dL after patient consumed 70 g CHO at breakfast that day. I spoke w RN (Tootie) and requested that she help ensure CHO is limited to 45 g per meal (per previous diet parameters) when diet is ordered post-op * Of note, patient (Yg) has been present for all of my conversations with Marcella (), but he has not been an active participant in most of it. He seems most concerned with getting a bedtime snack, which I encouraged and noted this was something we can accommodate. I requested that he not snack between meals and that he notify nursing of any outside food consumed to ensure we accurately account for CHO intake. He acknowledged understanding. Afternoon update * Surgery not needed per Dr. Newby, heparin drip in D5 stopped, and T2DM (max 45 g CHO per meal) ordered * Will switch back to NPH. However, will order reduced dose x1 at dinner today as effects of Levemir in AM will persist until tomorrow AM, and then resume previous parameters tomorrow. * OK to decrease overnight checks from two to one PLAN FOR INPATIENT GLYCEMIC CONTROL: Hold outpatient oral diabetes medication (metformin) Basal insulin * Resumed previous parameters of NPH 15 units SC BIDM (with reduction to 10 units for BSG less than 100 mg/dL), morning dose may need titrated up as patient having increase in BSG with lunch Bolus insulin - tighten correction factor * NovoLog @ breakfast * Goal Range: Low 120 mg/dL - High 150 mg/dL * Correction Factor: 20 mg/dL/unit * Nutritional / Prandial insulin per carb ratio of 1 unit per 5 grams CHO consumed * NovoLog @ lunch, dinner, HS, 0200 * Goal Range: Low 120 mg/dL - High 150 mg/dL * Correction Factor: 20 mg/dL/unit * Nutritional / Prandial insulin per carb ratio of 1 unit per 6 grams CHO consumed
--- NOTE | 2019-01-22 20:43 | Discharge Summary ---
Date of Service Date of Admission: 01/16/19 Date of Discharge: 01/22/19 Admission HPI Per Admitting Provider Mr. Beasley is a 83-year-old male who has significant past medical history of CAD history of CABG x 3 in 2002, T2DM, HTN, HLD, hypothyroidism, BPH, glaucoma, diabetic retinopathy, statin intolerance who presents to [facility] as a direct admission from cardiology clinic due to decompensated CHF. is at bedside. Over the past 1.5 weeks he has noticed increase in lower extremity swelling, right greater than left, shortness of breath with exertion, 2-3 pillow orthopnea, minimal dry cough. He admits to chronic left lower extremity swelling ever since CABG, but now worse. He denies any fever, chills, sweats, lightheadedness, dizziness, syncope, chest pain, palpitations, hemoptysis, nausea, vomiting, abdominal pain, diarrhea, melena, hematochezia, dysuria, increased urgency with urination, hematuria. He does have frequent nocturia secondary to BPH. His appetite has otherwise been stable. He has an approximate 10 pound weight gain since his last cardiology visit per . Despite being 83 he has only been hospitalized twice once for his CABG at [facility] and the other for coronary stent at [facility] in 1992. Patient was seen and evaluated in cardiology clinic secondary to ALICIA and increased swelling. He was evaluated by Dr. Brandon and referred for direct admission. 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 Verified 01/21/19 10:55 Consultations 01/16/19 16:12 Consult Cardiology Routine 01/16/19 16:15 Consult Case Management - Discharge Planning Routine 01/19/19 10:02 Consult Neurology Routine 01/20/19 17:20 Consult Vascular Surgery Routine Ordered Studies 01/16/19 17:06 US venous doppler LE BI Urgent 01/16/19 21:14 CT head/brain wo con Urgent 01/18/19 10:08 MR brain wo con Routine 01/20/19 15:08 US arterial duplex LE RT Routine 01/21/19 17:37 US carotid doppler BI Routine Hospital Course (1) CHF (congestive heart failure): Presented with worsening dyspnea and dependent edema. Chest x-ray showed cardiomegaly and pulmonary vascular congestion. proBNP was elevated. Cardiology consulted. Echocardiogram demonstrated LVEF of 45-50%, grade 2 diastolic dysfunction. 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 Received IV diuretics with improvement. Continue furosemide, spironolactone, metoprolol succinate, losartan. (2) Coronary artery disease: No anginal symptoms. Continue aspirin, metoprolol, lipid management. (3) Atherosclerotic peripheral vascular disease of extremity: Arterial duplex of right lower extremity demonstrated stenosis in the distal right superficial femoral artery. Vascular Surgery consulted. No need for intervention at this time. Continue aspirin, lipid management, etc. (4) Carotid artery disease: Carotid duplex showed extensive plaque, but no hemodynamically significant stenoses. Continue aspirin, lipid management, risk facto modification. Follow. (5) Diabetes mellitus type 2 with complications: Diabetes mellitus type 2, usually managed with metformin and NovoLog mix 7030. Hemoglobin 8.4 on 01/17/2019. Held metformin during hospital stay. Pharmacy consulted for glycemic management. Receiving basal/bolus insulin per protocol. Fasting blood sugar today = 269. Discharged on usual outpatient regimen with close follow-up. (6) Hypertension: Continue metoprolol succinate and losartan. (7) Dyslipidemia: LDL-c = 92. Intolerant of multiple statins. Continue ezetimibe. (8) Hypothyroidism: TSH 1.82. Continue levothyroxine. (9) Cellulitis: Cellulitis right lower extremity and dorsum of right foot. attributes cellulitis to abrasions from crawling on rug after fall. Improving. Discharge on cephalexin to complete course of treatment. (10) Gait abnormality: Shuffling gait and frequent falls. Seen in consultation by Neurology. MRI showed age-related atrophy, no acute findings. Coxsackie not to have Parkinson's disease. Gait dysfunction possibly secondary to diabetic neuropathy. PT/OT. Ambulation with walker. (11) Hematuria: Developed gross hematuria via Ma cath while receiving IV heparin. Ma cath removed. Heparin discontinued. UA showed RBC's, but no apparent infection. Recheck UA in clinic and pursue further evaluation if hematuria persists. (12) DVT prophylaxis: Initially received subcutaneous enoxaparin, but started on IV heparin because of peripheral vascular disease with significant stenosis. No other anticoagulants at this time because of the hematuria. SCDs ordered, but limited to left lower extremity due to peripheral vascular disease noted in the right lower extremity. Ambulate as able. (13) Discharge planning issues: Discharged to home. Family Medicine follow-up with Dr. Boyer. Cardiology follow-up with [facility]. Neurology follow-up with [facility]. Vascular Surgery follow-up with Dr. Newby. Total Time Total Time Spent Total Time Spent (In Minutes): 45 Discharge Plan Discharge Items Patient Disposition: Home - Self-Care Reason For Visit: congestive heart failure (fluid in lungs) Discharge Diagnosis: congestive heart failure cellulitis of right leg (skin infection) peripheral vascular disease (blockage in artery in right leg) carotid artery disease (hardening of arteries, but no severe blockage) Condition on Discharge: Good Activity: As commented below Activity Comment: gradually increase activity as tolerated; use walker for safety Non-emergency contact: Primary Care Provider, Hospitalist, Rug Drying Machine Operator and Neurologist Call non-emergency contact if: you have any medication questions, your symptoms worsen and your temperature is above 101 Follow-up/Referrals: Jamie Boyer MD [Primary Care Provider] - (01/26/2019 9:00 AM Jamie Boyer MD) Maciel Brandon MD [Physician] - (Office will contact you with follow-up appointment.) Berna Paniagua MD [Physician] - (Please ask Dr. Boyer for referrral for follow-up appointment.) Rubin Newby MD [Physician] - (Please ask Dr. Boyer for referrral for follow-up appointment.) Diet: Carb Consistent or DM2 and Heart Healthy Addtl Attending Provider Instructions: SUMMARY OF TEST RESULTS: First chest x-ray showed fluid in lungs. Repeat chest x-ray on 01/22 showed improvement. Ultrasound of veins legs on 01/16/19 did not show any blood clots. CT and MRI of brain did not show any signs of stroke or other significant abnormalities. Ultrasound of arteries of right leg showed some blockage. Ultrasound of carotid arteries in your neck showed some hardening of the arteries, but no severe blockage. Hemoglobin A1C was 8.4. LDL cholesterol was 92. CHF (CONGESTIVE HEART FAILURE) INSTRUCTIONS: Call 911 and go to the Emergency Room if: * You have tightness or pain in your chest that does not go away with rest or Nitroglycerin * You are very short of breath even with rest Call your doctor if any of the following symptoms or problems start or get worse: * Shortness of breath or difficulty breathing * Wake up at night short of breath * Chest pain * Cough * Swelling of your hands, fee, or legs * More fatigued or tired with your normal activity * Palpitations - sudden fast heart beats WEIGHT * Weigh yourself every morning after using the bathroom. * Use the same scale. * Wear the same amount of clothing. * Write your weight down on your chart. * Call your doctor if you gain more than 2-3 pounds in 1-2 days. MEDICATIONS * Use this discharge instruction sheet for instructions. * Take your medications at the time your doctor ordered. * Do not skip a dose of your medicines. * If you miss a dose of medicine, take as soon as possible, but DO NOT DOUBLE A DOSE. * Read your medicine information when you get home. * Know all of the side effects of your medicine. * Call your doctor's office if you have any side effects. * Be sure all of your doctors know what medicine and herbs you take (including cold, flu, and herbal medicine). * Pain Medicine: If you do not get relief from your pain, please call your doctor for help. Take the following with you to your follow-up doctor appointments: * Weight Chart * Medication List * List of questions Do not drink excessive alcohol, beer or wine. OTHER INSTRUCTIONS: Seek medical attention if you have: * temperature above 101 * chest pain or trouble breathing * abdominal pain, nausea, vomiting * diarrhea, dark stools or bloody stools * any unanswered questions or concerns Call 911 if symptoms are severe. Please take good care of yourself. Call if you have any questions or problems. You can reach a [facility] hospitalist on duty at [facility] 24 hours a day by calling [phone]. My cell # is [phone]. Pending Studies at Discharge: No Stand-Alone Forms: [facility], Smoking Cessation Medications and DC Order Prescriptions: New furosemide 40 mg Tablet 40 mg PO QAM Qty: 30 RF: 1 cephalexin 250 mg Capsule 250 mg PO QID Qty: 20 RF: 0 spironolactone 25 mg Tablet 12.5 mg PO DAILY Qty: 30 RF: 1 metoprolol succinate 50 mg tablet extended release 24 hr 75 mg PO BID Qty: 90 RF: 1 Continued latanoprost 0.005 % Drops 1 drp OPHTHALMIC (EYE) PM RF: 0 aspirin [Aspir-81] 81 mg Tablet,Delayed Release (Dr/Ec) 81 mg PO DAILY RF: 0 amoxicillin 500 mg Tablet 2,000 mg PO DAILY PRN (Reason: procedure) RF: 0 levothyroxine 75 mcg Tablet 75 mcg PO DAILY RF: 0 tamsulosin 0.4 mg Capsule 0.4 mg PO DAILY RF: 0 metformin 1,000 mg Tablet 1,000 mg PO BIDM RF: 0 brimonidine 0.2 % Drops 1 drp OPHTHALMIC (EYE) BID RF: 0 cyanocobalamin (vitamin B-12) 1,000 mcg Tablet, Sublingual 1,000 mcg SUBLINGUAL DAILY RF: 0 losartan 100 mg Tablet 50 mg PO DAILY RF: 0 finasteride 5 mg Tablet 5 mg PO DAILY RF: 0 Novolog Mix 70-30FlexPen U-100 100 unit/mL (70-30) Insulin Pen 20 unit SUBCUT BID RF: 0 ezetimibe 10 mg Tablet 10 mg PO DAILY RF: 0 diclofenac sodium 1 % Gel 4 g TOPICAL QID RF: 0 dorzolamide-timolol (PF) [Cosopt (PF)] 2-0.5 % Dropperette 1 drp OPHTHALMIC (EYE) BID RF: 0 Ocuvite Eye Health 50 mg-15 unit- 4.5 mg-2.5 mg Tablet,Chewable 1 tab PO BID RF: 0 Discontinued metoprolol tartrate 50 mg Tablet 50 mg PO BID RF: 0 hydrochlorothiazide 25 mg Tablet 25 mg PO 3XWK RF: 0 Discharge Orders: Discharge Order (Routine); Ordered 01/22/19 Ordered By: Idris Paulino Admission Data Admit Date/Time: 01/16/19 16:21 Attending Provider: Idris Paulino Admit Provider: Julio Lyman Primary Care Provider: Jamie Boyer Other Providers: Jassi Goldstein ; Berna Paniagua ; Low Martell ; Rubin Newby Other Interventions: Discharge Summary Assessment (RN) Last Done: 01/22/19 13:54 DC Date/Time DO NOT enter until pt leaves facility: 01/22/19 15:05
== END 2019-01-22 15:05 | disposition home or self-care (01) | DRG 291 ==
LOC: 2S 16:21 → SUATTDRO 16:21